=== PATIENT | female | born 1960 | race Caucasian/White ===

== ENCOUNTER 2024-07-26 15:10 | Emergency (ER) | payer OTHER, SELFPAY ==
--- NOTE | ~2024-07-26 | XR_ITS ---
EXAMINATION: XR hand LT min 3V DATE: 07/26/2024 16:35 INDICATION: Left hand injury. TECHNIQUE: 3 views of left hand were obtained. COMPARISON: None. FINDINGS: Alignment is normal. Trapezium is absent. There is mild osteoarthritis of triscaphe joint. There is mild osteoarthritis of some of the metacarpophalangeal joints and interphalangeal joints. Th ere is moderate osteoarthritis of first interphalangeal joint. IMPRESSION: 1. Polyarticular osteoarthritis. Reviewed, dictated and finalized at location [facility]. [facility]
--- OUTSIDE RECORDS SUMMARY | 2024-07-26 15:12 | XMS_ITS | Data Portability ---
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 Name Role Phone TOPHER THRASHER Primary Care Provider [phone] Assessment Encounter Date Assessment Date Assessment LastModified by Organization Details LastModified Time 11/15/2023 11/15/2023 add long-acting inhaler check blood work get old records try to get her on GLP 1 agent follow up 4 months [email or web address] Not available 12/10/2023 23:17:27 04/04/2024 04/04/2024 she has already received some shots flu COVID and I believe she needs a Prevnar 20 we will go ahead and get that going we will try to get her mammogram in Cologuard reports continue current therapy follow up in 4 months healthy lifestyle care instructions [email or web address] Not available 04/08/2024 14:58:13 07/11/2024 07/11/2024 we will continue current therapy healthy lifestyle care instructions blood work has been ordered diagnosis discussed all questions answered she will follow up in 4 months [email or web address] Not available 07/15/2024 17:34:05 Plan of Treatment Reminders Order Date Submit Date Provider Last Modified By Organization Details Last Modified Time Details Appointments ANY 15 2024 02:00P Rebecca Thrasher MD Not available Not available Not available Lab CBC w/ auto diff 2024 025 [facility], [address], [address], [place], [address], 07/12/2024 14:43:41 vitamin D, 25-hydrox y, total, serum 2024 025 [facility], [address], [address], [place], [address], 07/12/2024 14:43:42 lipid panel, serum 2024 025 [facility], [address], [address], [place], [address], 07/12/2024 14:43:39 CMP, serum or plasma 2024 025 [facility], [address], [address], [place], [address], 07/12/2024 14:43:40 noninvasi ve colorecta l cancer DNA + occult blood screening , QL, stool 2023 024 [facility]), [address], [address], [place], [address], 05/09/2024 06:35:15 CBC w/ auto diff 2023 024 [facility], [address], [address], [place], [address], 12/16/2023 08:27:56 CMP, serum or plasma 2023 024 LATANYA [facility], [address], [address], [place], [address], 12/16/2023 08:27:56 lipid panel, serum 2023 024 [facility], [address], [address], [place], [address], 12/16/2023 08:27:55 Referral None recorded. Procedures None recorded. Surgeries None recorded. Imaging None recorded. Medication Orders atorvasta tin 10 mg tablet 2023 024 [id number], [address], [place], [place], [id number], 04/04/2024 15:31:33 albuterol sulfate HFA 90 mcg/actua tion aerosol inhaler [address] [facility], [address], [place], [id number], 11/15/2023 17:30:02 Breztri Aerospher e 160 mcg-9mcg- 4.8mcg/ac tuation HFA aerosol inhaler [address] [facility]72680, [address], [place], [id number], 11/15/2023 17:30:02 Wegovy 0.25 mg/0.5 mL subcutane ous pen injector 2023 [facility] #51643, [address], [place], [id number], 04/04/2024 14:06:56 Wegovy 0.5 mg/0.5 mL subcutane ous pen injector 2023 [facility] #86383, [address], [place], [id number], 04/04/2024 14:07:06 Patient TargetsNo targets recorded. Patient Instructions Encounter Date Encounter Id Patient Instructions Last Modified By Organization Details Last Modified Time 04/04/2024 [id number] A healthy lifestyle: care instructions [email or web address] Not available 04/04/2024 15:31:33 07/11/2024 [id number] A healthy lifestyle: care instructions [email or web address] Not available 07/11/2024 18:02:36 Reason for Referral None Reported. Results Created Date Observation Date Name Description Value Unit Range Abnormal Flag Note LastModifiedBy Organization Detail LastModifiedTime 12/15/19 24 12/16/2023 LIPID PANEL cholesterol, total 146 mg/dL 100-19 9 Not Available [facility] ([facility]) [address] [place], [address], 12/16/2023 08:27:55 12/15/19 24 12/16/2023 LIPID PANEL triglyceride s 63 mg/dL 0-149 Not Available [facility] [address] [place], [address], 12/16/2023 08:27:55 12/15/19 24 12/16/2023 LIPID PANEL HDL cholesterol 62 mg/dL >39 Not Available [facility] [address] [place], [address], 12/16/2023 08:27:55 12/15/19 24 12/16/2023 LIPID PANEL VLDL cholesterol aneesh 13 mg/dL 5-40 Not Available [facility] [address] [place], [address], 12/16/2023 08:27:55 12/15/19 24 12/16/2023 LIPID PANEL LDL chol calc ([facility]) 71 mg/dL 0-99 Not Available [facility] [address] [place], [address], 12/16/2023 08:27:55 12/15/19 24 12/16/2023 COMP. METAB OLIC PANEL (14) glucose 93 mg/dL 70-99 Not Available [facility] ([facility]) [address] [place], [address], 12/16/2023 08:27:56 12/15/19 24 12/16/2023 COMP. METAB OLIC PANEL (14) BUN 14 mg/dL 8-27 Not Available [facility] ([facility]) [address] [place], [address], 12/16/2023 08:27:56 12/15/19 24 12/16/2023 COMP. METAB OLIC PANEL (14) creatinine 0.81 mg/dL 0.57-1 .00 Not Available [facility] ([facility]) [address] [place], [address], 12/16/2023 08:27:56 12/15/19 24 12/16/2023 COMP. METAB OLIC PANEL (14) eGFR 82 mL/mi n/1.7 3 >59 Not Available [facility] ([facility]) [address] [facility], [place], [address], 12/16/2023 08:27:56 12/15/19 24 12/16/2023 COMP. METAB OLIC PANEL (14) BUN/creatini ne ratio 17 12-28 Not Available [facility] ([facility]) [address] [facility], [place], [address], 12/16/2023 08:27:56 12/15/19 24 12/16/2023 COMP. METAB OLIC PANEL (14) sodium 139 mmol/ L 134-14 4 Not Available [facility] ([facility]) [address] [place], [address], 12/16/2023 08:27:56 12/15/19 24 12/16/2023 COMP. METAB OLIC PANEL (14) potassium 4.5 mmol/ L 3.5-5. 2 Not Available [facility] ([facility]) [address] [place], [address], 12/16/2023 08:27:56 12/15/19 24 12/16/2023 COMP. METAB OLIC PANEL (14) chloride 104 mmol/ L 96-106 Not Available [facility] ([facility]) [address] [place], [address], 12/16/2023 08:27:56 12/15/19 24 12/16/2023 COMP. METAB OLIC PANEL (14) carbon dioxide, total 24 mmol/ L 20-29 Not Available [facility] ([facility]) [address] [place], [address], 12/16/2023 08:27:56 12/15/19 24 12/16/2023 COMP. METAB OLIC PANEL (14) calcium 9.7 mg/dL 8.7-10 .3 Not Available [facility] ([facility]) [address] [place], [address], 12/16/2023 08:27:56 12/15/19 24 12/16/2023 COMP. METAB OLIC PANEL (14) protein, total 6.7 g/dL 6.0-8. 5 Not Available [facility] ([facility]) [address] [facility], [address], 12/16/2023 08:27:56 12/15/19 24 12/16/2023 COMP. METAB OLIC PANEL (14) albumin 4.1 g/dL 3.9-4. 9 Not Available [facility] ([facility]) [address] [place], [address], 12/16/2023 08:27:56 12/15/19 24 12/16/2023 COMP. METAB OLIC PANEL (14) globulin, total 2.6 g/dL 1.5-4. 5 Not Available [facility] ([facility]) [address] [facility], [address], 12/16/2023 08:27:56 12/15/19 24 12/16/2023 COMP. METAB OLIC PANEL (14) bilirubin, total 0.4 mg/dL 0.0-1. 2 Not Available [facility] ([facility]) [address] [place], [address], 12/16/2023 08:27:56 12/15/19 24 12/16/2023 COMP. METAB OLIC PANEL (14) alkaline phosphatase 152 IU/L 44-121 above high normal Not Available [facility] ([facility]) [address] [place], [address], 12/16/2023 08:27:56 12/15/19 24 12/16/2023 COMP. METAB OLIC PANEL (14) AST (SGOT) 45 IU/L 0-40 above high normal Not Available [facility] ([facility]) [address] [place], [id number], 12/16/2023 08:27:56 12/15/19 24 12/16/2023 COMP. METAB OLIC PANEL (14) ALT (SGPT) 66 IU/L 0-32 above high normal Not Available [facility] ([facility]) [address] [place], [address], 12/16/2023 08:27:56 12/15/19 24 12/16/2023 CBC WITH DIFFE RENTI AL/PL ATELE T WBC 5.0 x10e3 /uL 3.4-10 .8 Not Available [facility] ([facility]) [address] [facility], [address], 12/16/2023 08:27:56 12/15/19 24 12/16/2023 CBC WITH DIFFE RENTI AL/PL ATELE T RBC 4.04 x10e6 /uL 3.77-5 .28 Not Available [facility] ([facility]) [address] [facility], [address], 12/16/2023 08:27:56 12/15/19 24 12/16/2023 CBC WITH DIFFE RENTI AL/PL ATELE T hemoglobin 12.2 g/dL 11.1-1 5.9 Not Available [facility] ([facility]) [address] [facility], [address], 12/16/2023 08:27:56 12/15/19 24 12/16/2023 CBC WITH DIFFE RENTI AL/PL ATELE T hematocrit 36.8 % 34.0-4 6.6 Not Available [facility] ([facility]) [address] [facility], [place], [address], 12/16/2023 08:27:56 12/15/19 24 12/16/2023 CBC WITH DIFFE RENTI AL/PL ATELE T MCV 91 fL 79-97 Not Available [facility] ([facility]) [address] [facility], [place], [address], 12/16/2023 08:27:56 12/15/19 24 12/16/2023 CBC WITH DIFFE RENTI AL/PL ATELE T MCH 30.2 pg 26.6-3 3.0 Not Available [facility] ([facility]) [address] [facility], [place], [address], 12/16/2023 08:27:56 12/15/19 24 12/16/2023 CBC WITH DIFFE RENTI AL/PL ATELE T MCHC 33.2 g/dL 31.5-3 5.7 Not Available [facility] ([facility]) [address] [facility], [place], [address], 12/16/2023 08:27:56 12/15/19 24 12/16/2023 CBC WITH DIFFE RENTI AL/PL ATELE T RDW 12.8 % 11.7-1 5.4 Not Available [facility] ([facility]) [address] [facility], [place], [address], 12/16/2023 08:27:56 12/15/19 24 12/16/2023 CBC WITH DIFFE RENTI AL/PL ATELE T platelets 233 x10e3 /uL 150-45 0 Not Available [facility] ([facility] [address] [place], [address], 12/16/2023 08:27:56 12/15/19 24 12/16/2023 CBC WITH DIFFE RENTI AL/PL ATELE T neutrophils 46 % notest ab. Not Available [facility] ([facility]) [address] [facility], [place], [address], 12/16/2023 08:27:56 12/15/19 24 12/16/2023 CBC WITH DIFFE RENTI AL/PL ATELE T lymphs 42 % notest ab. Not Available [facility] ([facility]) [address] [facility], [place], [address], 12/16/2023 08:27:56 12/15/19 24 12/16/2023 CBC WITH DIFFE RENTI AL/PL ATELE T monocytes 9 % notest ab. Not Available [facility] ([facility]) [address] [facility], [place], [address], 12/16/2023 08:27:56 12/15/19 24 12/16/2023 CBC WITH DIFFE RENTI AL/PL ATELE T eos 2 % notest ab. Not Available [facility] ([facility]) [address] [facility], [place], [address], 12/16/2023 08:27:56 12/15/19 24 12/16/2023 CBC WITH DIFFE RENTI AL/PL ATELE T basos 1 % notest ab. Not Available [facility] ([facility]) [address] [facility], [place], [address], 12/16/2023 08:27:56 12/15/19 24 12/16/2023 CBC WITH DIFFE RENTI AL/PL ATELE T neutrophils (absolute) 2.3 x10e3 /uL 1.4-7. 0 Not Available [facility] ([facility]) [address] [facility], [place], [address], 12/16/2023 08:27:56 12/15/19 24 12/16/2023 CBC WITH DIFFE RENTI AL/PL ATELE T lymphs (absolute) 2.1 x10e3 /uL 0.7-3. 1 Not Available [facility] ([facility] [address] [place], [address], 12/16/2023 08:27:56 12/15/19 24 12/16/2023 CBC WITH DIFFE RENTI AL/PL ATELE T monocytes(ab solute) 0.5 x10e3 /uL 0.1-0. 9 Not Available [facility] ([facility]) [address] [facility], [place], [address], 12/16/2023 08:27:56 12/15/19 24 12/16/2023 CBC WITH DIFFE RENTI AL/PL ATELE T eos (absolute) 0.1 x10e3 /uL 0.0-0. 4 Not Available [facility] ([facility]) [address] [facility], [place], [address], 12/16/2023 08:27:56 12/15/19 24 12/16/2023 CBC WITH DIFFE RENTI AL/PL ATELE T baso (absolute) 0.0 x10e3 /uL 0.0-0. 2 Not Available [facility] ([facility]) [address] [facility], [place], [address], 12/16/2023 08:27:56 12/15/19 24 12/16/2023 CBC WITH DIFFE RENTI AL/PL ATELE T immature granulocytes 0 % notest ab. Not Available [facility] ([facility]) [address] [facility], [place], [address], 12/16/2023 08:27:56 12/15/19 24 12/16/2023 CBC WITH DIFFE RENTI AL/PL ATELE T immature grans (abs) 0.0 x10e3 /uL 0.0-0. 1 Not Available [facility] ([facility] [address] [place], [address], 12/16/2023 08:27:56 04/27/20 24 04/27/2024 COLOG UARD cologuard result reportable NEGATI VE negati ve normal NEGAT MARISELA TEST RESUL T. A negat marisela Colog uard resul t indic ates a low likel ihood that a color ectal cance r (CRC) or advan betzaida adeno ma (joesph omato us polyp s with more advan betzaida pre-m align ant featu res) is prese nt. The [facility] emergency department e that a perso n with a negat marisela Colog uard test has a color ectal cance r is less than 1 in 1500 (nega tive predi ctive value >99.9 %) or has an advan betzaida adeno ma is less than 5.3% (nega tive predi ctive value 94.7% ). These data are based on a prosp ectiv e cross -sect ional study of 10,00 0 indiv idual s at [place] risk for color ectal cance r who were scree edwar with both Colog uard and colon oscop y. (El Da Silva et al, N Engl J Med 2014; 370(1 4):12 86-12 97) The tori l value (refe rence range ) for this assay is negat marisela. COLOG UARD RE-SC REELUZ NG RECOM MENDA TION: Perio dic color ectal cance r scree elma is an impor tant part of preve ntive healt hcare for asymp tomat ic indiv idual s at [place] risk for color ectal cance r. Follo wing a negat marisela Colog uard resul t, the Ameri can Cance r Socie ty and U.S. Multi -Soci ety Task Force scree elma guide lines recom mend a Colog uard re-sc reeni ng inter amos of 3 years . Refer ences : Ameri can Cance r Socie ty Guide line for Color ectal Cance r Scree elma: https ://gina w.can cer.o rg/ca ncer/ colon -rect al-ca ncer/ detec tion- diagn osis- stagi ng/ac s-rec ommen datio ns.ht ml.; Jim DEL VALLE, Josephine mullins CR, Jeremiah MolinaK, Color ectal Cance r Scree elma: Recom menda tions for Physi cians and Patie nts from the U.S. Multi -Soci ety Task Force on Color ectal Cance r Screilana wills , Am Tracy courtney y 2017; 112:1 016-1 030. TEST DESCR IPTIO N: [place] site algor ithmi c rose mary sis of stool DNA-b luke rodriguez with hemog lobin immun oassa y. Quant itati ve value s of indiv idual bioma rkers are not repor table and are not assoc iated with indiv idual bioma rker resul t refer ence range s. Colog uard is inten ded for color ectal cance r scree elma of adult s of eithe r sex, 45 years or older , who are at [facility] for color ectal cance r (CRC) . Colog uard has been appro hong for use by the U.S. FDA. The perfo rmanc e of Colog uard was estab lishe d in a cross secti onal study of [facility] adult s aged 50-84 . Colog uard perfo rmanc e in patie nts ages 45 to 49 years was estim ated by sub-g roup rose mary sis of near- age group s. Colon oscop ies perfo rmed for a posit marisela resul t may find as the most clini neris signi festus hardy n: color ectal cance r [4.0% ], advan betzaida adeno ma (incl uding sessi le katharine greg polyp s great er than or equal to 1cm diame ter) [20%] or non- advan betzaida adeno ma [31%] ; or no color ectal neopl mik [45%] . These estim ates are deriv ed from a prosp ectiv e cross -sect ional scree elma study of 10,00 0 indiv idual s at [facility] risk for color ectal cance r who were scree edwar with both Colog uard and colon oscop y. (El Olivia al, N Engl J Med 2014; 370(1 4):12 86-12 97.) Colog uard may produ ce a false negat marisela or false posit marisela resul t (no color ectal cance r or preca ncero us polyp prese nt at colon oscop y follo w up). A negat marisela Colog uard test resul t does not guara ntee the absen ce of CRC or advan betzaida aries ma (pre- cance r). The curre nt Colog uard screilana wills inter amos is every 3 years . (Amer ican Cance r Socie ty and U.S. Multi -Soci ety Task Force ). Colog uard perfo rmanc e data in a 10,00 0 patie nt pivot al study using colon oscop y as the refer ence metho d can be acces sed at the follo wing locat ion: www.e xactl abs.c om/re sults . Addit ional descr iptio n of the Colog uard test proce ss, warni ngs and preca ution s can be found at www.c ologu komal.c om. Not Available [facility] ([facility] Only) [address], [place], [address], 05/09/2024 06:35:15 05/09/20 24 08/25/2022 MAMMO , zack gonzálesg, digit al, bilat eral No observ ation record ed. [facility] [address] [place], [address], 05/10/2024 10:33:49 Result Notes None recorded. Problems Name Problem SNOMED Code Status Onset Date Resolution Date Notes Provider Name and Address Organization Details Recorded Time Asthma 557391347 Active 2023 Miguel Saba MA null, [place] - [facility] 4 16:45:14 Essential hypertension 24928905 Active 2023 Miguel Saba [place], [place] [facility] 16:45:14 Hyperlipidemia 36174088 Active 2023 Miguel Saba [place], [place] [facility] 16:45:15 Anxiety 31515938 Active 2023 Topher Thrasher MD Attn: Samantha sen,[address] [facility], [place], [address], [facility] 4 23:16:10 Vitamin D below reference range 772389588 Active 2023 Topher Thrasher MD Attn: Samantha sen,[address], [place], [address], [place] [facility] 4 23:16:11 Paroxysmal dystonia 670898102 Active 2023 Topher Thrasher MD Attn: Samantha sen,[address], [place], [address], [facility] 4 23:16:12 Overweight 313270656 Active 2023 Topher Thrasher MD Attn: Samantha sen,[address] [facility], [place], [address], [facility] 4 23:16:16 Problem Notes None recorded. Procedures Surgical History Date Name Laterality Status Provider Name and Address Organization Details Recorded Time 06/06/19 15 hysterectomy completed Rachel Castanon MA [facility] 04/04/2024 14:19:58 Arthroscopic Surgery completed Aracely Fisher MA [facility] 11/15/2023 15:56:18 Cholecystectomy completed Aracely Fisher MA [facility] 11/15/2023 15:56:24 Eye Surgery completed Aracely Fisher MA [facility] 11/15/2023 15:56:28 Knee Surgery completed Aracely Fisher MA [facility] 11/15/2023 15:56:35 Imaging Results Imaging Date Name Status LastModified by Organiz ation Details LastModified Time 08/25/2022 MAMMO, screening, digital, bilateral completed [facility] [address] [place], [address], 05/10/2024 10:33:49 Procedure Notes None recorded. Medical Equipment None Reported. Allergies No known drug allergies Medications Name Sig Start Date Stop Date Status Note LastModified by Organization Details LastModified Time Prescriptio n - Prior Authorizati on Request active Not Available Not Available N ot Available atorvastati n 10 mg tablet Take 1 tablet every day by oral route. active Not Available Not Available No t Available levetiracet am 750 mg tablet active Not Available Not Available Not Available ergocalcife rol (vitamin D2) 1,250 mcg (50,000 unit) capsule TAKE 1 CAPSULE BY MOUTH EVERY WEEK 07/11 completed Not Available Not Available Not Available albuterol sulfate HFA 90 mcg/actuati on aerosol inhaler INHALE 2 PUFFS BY MOUTH EVERY 4 HOURS active Not Available Not Available No t Available fluoxetine 20 mg capsule active Not Available Not Available Not Available Breztri Aerosphere 160 mcg-9mcg-4. 8mcg/actuat ion HFA aerosol inhaler INHALE 2 PUFFS BY MOUTH TWICE DAILY active Not Available Not Available No t Available Wegovy 0.25 mg/0.5 mL subcutaneou s pen injector inject 0.25mg weekly for 4wks then go to 0.5mg weekly for 4wks. 04/04 completed Not Available Not Available Not Available Wegovy 0.5 mg/0.5 mL subcutaneou s pen injector Inject by subcutane ous route for 28 days. active Not Available Not Available No t Available Vitals Date Recorded Body height Body mass index (BMI) Body weight Heart rate Oxygen saturation Oxygen saturation in Arterial blood by Pulse oximetry Systolic blood pressure Diastolic blood pressure Provider Name and Address Organization Details Last Updated DateTime 4 167.64 cm 35.5 kg/m2 72451.6 g 67 /min 97 % 97 % 130 mm[Hg] 82 mm[Hg] Aracely Fisher MA [place] - [facility] 4 15:41:39 Date Recorded Body height Body mass index (BMI) Body weight Heart rate Oxygen saturation Oxygen saturation in Arterial blood by Pulse oximetry Systolic blood pressure Diastolic blood pressure Provider Name and Address Organization Details Last Updated DateTime 4 167.64 cm 36.2 kg/m2 322732. 13 g 70 /min 97 % 97 % 110 mm[Hg] 70 mm[Hg] Rachel Castanon MA [place] - [facility] 4 14:05:27 Date Recorded Body height Body mass index (BMI) Body weight Heart rate Oxygen saturation Oxygen saturation in Arterial blood by Pulse oximetry Systolic blood pressure Diastolic blood pressure Provider Name and Address Organization Details Last Updated DateTime 02/05/202 5 167.64 cm 35.8 kg/m2 383770. 51 g 72 /min 95 % 95 % 128 mm[Hg] 82 mm[Hg] Rachel Castanon MA [place] - [facility] 15:13:39 Social History Question Answer Notes LastModified by Organizat ion Details LastModified Time Tobacco Smoking Status Never Smoker Aracely PachecoBLAKE bell null, [place] - [facility] 11/15/2023 15:38:54 Do You Have An Advance Directive? No Information n ot available 04/04/2024 What Is Your Level Of Alcohol Consumption? Occasional Information not available 11/15/2023 Are You Blind Or Do You Have Difficulty Seeing? No Information n ot available 11/15/2023 What Is Your Level Of Caffeine Consumption? Occasional Information not available 04/04/2024 In The 14 Days Before Symptom Onset, Have You Had Close Contact With A Laboratory-confirm ed COVID-19 While That Case Was Ill? No Information n ot available 04/04/2024 In The 14 Days Before Symptom Onset, Have You Had Close Contact With A Person Who Is Under Investigation For COVID-19 While That Person Was Ill? No Information not available 04/04/2024 Have You Been To An Area Known To Be High Risk For COVID-19? No Information not available 04/04/2024 Are You Currently Employed? No Information not available 04/04/2024 Are You Deaf Or Do You Have Serious Difficulty Hearing? No Information not available 11/15/2023 What Type Of Diet Are You Following? REGULAR Information n ot available 04/04/2024 Are There Any Guns Present In Your Home? No Information not available 04/04/2024 What Was The Date Of Your Most Recent Tobacco Screening? 07/11/2024 Information not available 07/11/2024 What Is Your Relationship Status? Information not available 11/15/2023 Do You Use Your Seat Belt Or Car Seat Routinely? Yes Information not available 04/04/2024 Do You Have Smoke And Carbon Monoxide Detectors In Your Home? Yes Information not available 04/04/2024 Do You Use Any Illicit Or Recreational Drugs? No Information not available 04/04/2024 Do You Use Sunscreen Routinely? Yes Information not available 04/04/2024 Sex: Female Functional Status Question Answer Note LastModified by Organization D etails LastModified Time Are you able to care for yourself? Yes Information n ot available 11/15/2023 Mental Status None recorded. Family History Relationship Description Onset Age of this Age Resolved Age Notes LastModified by Organization Details LastModified Time Mother Malignant tumor of lung [email or web address] Not available 2023 15:56:57 Father Parkinson's disease [email or web address] Not available 2023 15:57:06 Medical History Condition Response Anxiety Disorder Y Muscle, Joint, or Bone Problems Y Other Y High Blood Pressure Y High Cholesterol Y Asthma Y Allergies Y Gynecological HistoryNo gynecological history recorded. Obstetrics History GPAL:G 0 P 0 0 0 0 Immunizations Vaccine Type Date Status Note Provider Nam e and Address Organization Details Recorded Time Influenza, split virus, quadrivalent, preservative 9 completed BLAKE [place], [place] [facility] 07/11/2024 14:52:09 Influenza, split virus, quadrivalent, preservative 8 completed B[place] [facility] 07/11/2024 14:52:09 Influenza, split virus, quadrivalent, preservative 1 completed [place] [facility] 07/11/2024 14:52:09 Influenza, MDCK, quadrivalent, PF 7 completed [place] [facility] 07/11/2024 14:52:09 Influenza, MDCK, quadrivalent, PF 2 [place] [facility] 07/11/2024 14:52:09 zoster, unspecified formulation 0 BLAKE [place] [facility] 07/11/2024 14:52:09 COVID-19, mRNA, LNP-S, PF, 100 mcg/0.5mL dose or 50 mcg/0.25mL dose 1 [place] [facility] 07/11/2024 14:52:09 COVID-19, mRNA, LNP-S, PF, 100 mcg/0.5mL dose or 50 mcg/0.25mL dose 1 [place] [facility] 07/11/2024 14:52:09 COVID-19, mRNA, LNP-S, PF, 30 mcg/0.3 mL dose 1 [place] [facility] 07/11/2024 14:52:09 COVID-19, mRNA, LNP-S, PF, 30 mcg/0.3 mL dose, kevyn-sucrose 2 [place] [facility] 07/11/2024 14:52:09 COVID-19, mRNA, LNP-S, bivalent, PF, 30 mcg/0.3 mL dose 2 [place] [facility] 07/11/2024 14:52:09 RSV, recombinant, protein subunit RSVpreF, adjuvant reconstituted, 0.5 mL, PF 3 [place] [facility] 07/11/2024 14:52:09 COVID-19, mRNA, LNP-S, PF, kevyn-sucrose, 30 mcg/0.3 mL 3 [place] [facility] 07/11/2024 14:52:09 Pneumococcal conjugate PCV 13 6 [place] [facility] 07/11/2024 14:52:09 Influenza, split virus, trivalent, preservative 0 [place] [facility] 07/11/2024 14:52:09 Influenza, split virus, trivalent, preservative 4 [place] [facility] 07/11/2024 14:52:09 Influenza, split virus, trivalent, preservative 3 [place] [facility] 07/11/2024 14:52:09 Influenza, split virus, trivalent, preservative 3 completed Rachel Castanon, [place] [facility] 07/11/2024 14:52:09 Influenza, split virus, trivalent, PF 6 completed Rachel [place] [facility] 07/11/2024 14:52:09 Influenza, split virus, trivalent, PF 5 completed Rachel Cast[place] [facility] 07/11/2024 14:52:09 Influenza, split virus, quadrivalent, PF 3 completed Rachel [place] [facility] 07/11/2024 14:52:09 Influenza, split virus, quadrivalent, PF 1 completed Rachel [place] [facility] 07/11/2024 14:52:09 Pneumococcal conjugate PCV20, polysaccharide [id number] conjugate, adjuvant, PF 4 completed Rachel [place] [facility] 07/11/2024 15:15:18 COVID-19, mRNA, LNP-S, PF, kevyn-sucrose, 30 mcg/0.3 mL 4 completed Rachel Cast[place] [facility] 07/11/2024 15:15:18 Influenza, MDCK, trivalent, PF 4 completed Rachel Cast[place] [facility] 07/11/2024 15:15:18 Pneumococcal conjugate PCV20, polysaccharide [id number] conjugate, adjuvant, PF 4 completed Topher Thrasher MD Attn: [employer] [place], [address], [place] [facility] 04/08/2024 14:55:06 Past Encounters Encounter ID Performer Location Encounter Start Date Encounter Closed Date Diagnosis/Indication Diagnosis SNOMED-CT Code Diagnosis ICD10 Code Diagnosis Note [id number] Topher Thrasher MD [facility] (Adult Med) [address] [place] [address] 11/15/2023 15:02:15 11/15/2023 16:45:53 Essential hypertension 98771342 I10 Asthma 003115696 J45.90 9 Hyperlipidemia 48600828 E78.5 Overweight 575137615 E66 .3 Anxiety 50007816 F41.9 Vitamin D below reference range 464090632 E55.9 Paroxysmal dystonia 2303 37151 G24.8 [id number] MD [facility] (Adult Med) [address] [place] [phone] 04/04/2024 13:52:40 04/04/2024 14:53:51 Body mass index 30+ - obesity 394863804 Z68.36 Obesity 483140160 E66.9 Hyperlipidemia 56728871 E78.5 Screening for malignant neoplasm of colon 888342092 Z12.11 Administra tion of pneumococcal vaccine 93024786 Z23 Asthma 544872377 J45.90 9 Essential hypertension 82012000 I10 Anxiety 24607135 F41.9 Paroxysmal dystonia 2303 82320 G24.8 [id number] Topher Thrasher MD [facility] (Adult Med) [address] [place] [phone] 07/11/2024 14:48:33 07/11/2024 15:53:10 Body mass index 30+ - obesity 510651860 Z68.36 Obesity 831785452 E66.9 Essential hypertension 01202106 I10 Hyperlipidemia 95032059 E78.5 Paroxysmal dystonia 2303 29449 G24.8 Asthma 755445058 J45.90 9 Anxiety 04515207 F41.9 Vitamin D below reference range 494002850 E55.9 Health Concerns Section Related Observation LastModified by Organization Detai ls LastModified Time None Recorded Concern Status LastModified by Organization Details LastModified Time None Recorded Advance Directives Directive N: Payers Encounter Date Sequence Insurance Name Policy Number Policy Dumont Covered Member ID Dumont Member ID Guarantor Name 11/15/2023 1 [employer] [id number] Aure Mtz [id number] Aure Mtz 04/04/2024 1 [employer] [id number] Aure Mtz [id number] Aure Mtz 07/11/2024 1 [employer] [id number] Aure Mtz [id number] [employer]ure M[employer] Notes Date Note Type Note Provider Name and Address Organization Details Recorded Time 11/15/2023 text/html asthma fatigue l ow vitamin-D level anxiety paroxysmal dystonia has had some awaking it at night needing to use her inhaler Topher Thrasher MD Attn: [employer] , [place], [address], [facility] 12/10/2023 23:18:02 04/04/2024 text/html asthma rescue inhaler has been used sparingly anxiety fluoxetine doing fine dyslipidemia taking atorvastatin trying to follow a low-fat diet low vitamin-D level needs to be refilled with regards to her vitamin-D Topher Thrasher MD Attn: Accounting[address] , [place], [address], [facility] 04/08/2024 14:58:30 07/11/2024 text/html follow up on medical problems asthma has been doing fine paroxysmal dystonia no new complaints there anxiety has been stable needs a vitamin-D level checked she has had a low level in the past hypertension blood pressure looks good obesity she needs a little bit of help losing weight Topher Thrasher MD Attn: Accounting[address] , [place], [address], [facility] 07/15/2024 17:34:36 OBGyn Episode No OBEpisode recorded.
--- OUTSIDE RECORDS SUMMARY | 2024-07-26 15:12 | XMS_ITS | Data Portability ---
Author Organization [place] - [facility] [employer], Main Office Address [address] [place] [address] Assessment Encounter Date Assessment Date Assessment LastModified by Organization Details LastModified Time 10/26/2022 10/26/2022 Asthma she has had a little bit uptake in her it rescue inhaler loose over the last week we have at high pollen counts over that of settle down she is fine today other diagnosis have been discussed blood work been ordered continue current therapy to also include action plan for asthma discussed follow-up 4 [email or web address] Not available 10/26/2022 13:54:56 04/19/2023 04/19/2023 Blood work continue current therapy bone density follow-up 6 months Not available 04/26/2023 21:01:43 Plan of Treatment Reminders Order Date Submit Date Provider Last Modified By Organization Details Last Modified Time Details Appointments None recorded. Lab CMP, serum or plasma 2022 023 Not available 3 21:25:42 lipid panel, serum 2022 023 [email or web address] Not available 21:25:42 CBC w/ auto diff 2022 023 [email or web address] Not available 21:25:42 vitamin D, 25-hydroxy , total, serum 2022 023 [email or web address] Not available 3 09:44:10 CMP, serum or plasma 2022 023 [email or web address] Not available 3 20:12:37 lipid panel, serum 2022 023 LATANYA Not available 3 20:12:46 CBC w/ auto diff 2022 023 LATANYA Not available 3 19:45:43 Referral None recorded. Procedures None recorded. Surgeries None recorded. Imaging MAMMO, screening, digital, bilateral 2022 023 [email or web address] Not available 4 08:30:23 bone density 2022 023 Not available 4 18:50:30 Medication Orders None recorded. Patient TargetsNo targets recorded. Patient InstructionsNo instructions recorded. Reason for Referral None Reported. Results Created Date Observation Date Name Description Value Unit Range Abnormal Flag Note LastModifiedBy Organization Detail LastModifiedTime 05/04/2005/04/2022 LIPID PANEL cholesterol 186 mg/dL 140-19 9 [facility] NSUS RECOM MENDA TION FOR SPARKLE STERO L: ADULT CHILD LOW RISK: <200 <170 BORDE RLINE : <200- 239 ----- HIGH RISK: >240 >200 Not Available [facility] (Lab) [address] [place], [address], 05/04/2022 20:53:30 05/04/20 22 05/04/2022 LIPID PANEL triglyceride s 83 mg/dL 0-150 [facility] ELSA NSUS REPOR T RECOM MENDA TION FOR TRIGL YCERI ANM: ADULT CHILD LOW RISK: <150 ----- BODER LINE: 150-1 99 ----- HIGH RISK: >200 ----- Not Available [facility] (Lab) [address] [place], [address], 05/04/2022 20:53:30 05/04/20 22 05/04/2022 LIPID PANEL HDL cholesterol 70 mg/dL 40- Not Available [facility] (Lab) [address] [place], [address], 05/04/2022 20:53:30 05/04/20 22 05/04/2022 LIPID PANEL LDL cholesterol, calculated 99 mg/dL 0-130 [facility] EL[facility] NSUS REPOR T RECOM MENDA TIONS FOR LDL: ADULT CHILD LOW RISK <130 <110 (OPTI MAL LDL) <100 ----- BORDE RLINE : 130-1 59 ----- HIGH RISK: >160 >130 A TRIGL YCERI DE RESUL T >400 INVAL IDATE S THE CALCU LATIO N FOR LDL FRACT IONAT ION - THE LDL RESUL T WILL NOT BE REPOR SUZIE. Not Available [facility] (Lab) [address] [place], [address], 05/04/2022 20:53:30 05/04/20 22 05/04/2022 COMPR EHENS MARISELA METAB OLIC PANEL sodium 141 mmol/ L 137-14 5 Not Available [facility] (Lab) [address] [place], [address], 05/04/2022 20:53:26 05/04/20 22 05/04/2022 COMPR EHENS MARISELA METAB OLIC PANEL potassium 4.3 mmol/ L 3.5-5. 1 Not Available [facility] (Lab) [address] [place], [address], 05/04/2022 20:53:26 05/04/20 22 05/04/2022 COMPR EHENS MARISELA METAB OLIC PANEL chloride 106 mmol/ L 98-107 Not Available [facility] (Lab) [address] [place], [address], 05/04/2022 20:53:26 05/04/20 22 05/04/2022 COMPR EHENS MARISELA METAB OLIC PANEL carbon dioxide 25 mmol/ L 22-30 Not Available [facility] (Lab) [address] [place], [address], 05/04/2022 20:53:26 05/04/20 22 05/04/2022 COMPR EHENS MARISELA METAB OLIC PANEL anion gap 14.3 mmol/ L 14-22 Not Available [facility] (Lab) [address] [place], [address], 05/04/2022 20:53:26 05/04/20 22 05/04/2022 COMPR EHENS MARISELA METAB OLIC PANEL glucose 106 mg/dL 70-99 high Not Available [facility] (Lab) [address] [place], [address], 05/04/2022 20:53:26 05/04/20 22 05/04/2022 COMPR EHENS MARISELA METAB OLIC PANEL BUN 23 mg/dL 8-19 high Not Available [facility] (Lab) [address] [place], [address], 05/04/2022 20:53:26 05/04/20 22 05/04/2022 COMPR EHENS MARISELA METAB OLIC PANEL creatinine 0.87 mg/dL 0.66-1 .25 Not Available [facility] (Lab) [address] [place], [address], 05/04/2022 20:53:26 05/04/20 22 05/04/2022 COMPR EHENS MARISELA METAB OLIC PANEL GFR >60 Refer ence Range : Meno ge GFR Healt hy Adult : >60 mL/mi n/1.7 3 m2 Chron ic Kidne y Disea se: 15-60 mL/mi n/1.7 3 m2 Kidne y Failu re: <15/m L/min /1.73 m2 www.n iddk. nih.g ov The MDRD study equat ion has not been valid ated in child benita <18 years of age; pregn ant women ; the elder ly >85 years of age; or in some racia l or ethni c subgr oups, such as Hispa nics. Outsi de the valid ated xena eters , estim ated GFR is less accur ate, requi ring clini aneesh judgm ent on a case- by-ca se basis . Clini aneesh inter preta tion for other races and ages must be made by the clini tai. The MDRD study equat ion has not been valid ated for the evalu ation of serum creat inine relat ed to nutri paolo l statu s or medic ation usage . For perso ns <18 years of age, a pedia tric GFR calcu lator is avail able on the [facility] websi te: https ://gina leigh.cory escobedo/renetta maral s/kdo qi/gf r_cal culat or Not Available [facility] (Lab) [address] [place], [address], 05/04/2022 20:53:26 05/04/20 22 05/04/2022 COMPR EHENS MARISELA METAB OLIC PANEL alkaline phosphatase 111 U/L 38-126 Not Available [facility] (Lab) [address] [place], [address], 05/04/2022 20:53:26 05/04/20 22 05/04/2022 COMPR EHENS MARISELA METAB OLIC PANEL alanine aminotransfe rase 36 U/L 0-35 high Not Available [facility] (Lab) [address] [place], [address], 05/04/2022 20:53:26 05/04/20 22 05/04/2022 COMPR EHENS MARISELA METAB OLIC PANEL aspartate aminotransfe rase 38 U/L 15-37 high Not Available [facility] (Lab) [address] [place], [address], 05/04/2022 20:53:26 05/04/20 22 05/04/2022 COMPR EHENS MARISELA METAB OLIC PANEL bilirubin, total 0.60 mg/dL 0.20-1 .30 Not Available [facility] (Lab) [address] [place], [address], 05/04/2022 20:53:26 05/04/20 22 05/04/2022 COMPR EHENS MARISELA METAB OLIC PANEL calcium 9.5 mg/dL 8.4-10 .2 Not Available [facility] (Lab) [address] [place], [address], 05/04/2022 20:53:26 05/04/20 22 05/04/2022 COMPR EHENS MARISELA METAB OLIC PANEL total protein 7.0 g/dL 6.3-8. 2 Not Available [facility] (Lab) [address] [place], [address], 05/04/2022 20:53:26 05/04/20 22 05/04/2022 COMPR EHENS MARISELA METAB OLIC PANEL albumin 4.3 g/dL 3.4-5. 0 Not Available [facility] (Lab) [address] [place], [address], 05/04/2022 20:53:26 05/04/20 22 05/04/2022 COMPR EHENS MARISELA METAB OLIC PANEL globulin 2.7 g/dL 2.6-4. 2 Not Available [facility] (Lab) [address] [place], [address], 05/04/2022 20:53:26 05/04/20 22 05/04/2022 COMPR EHENS MARISELA METAB OLIC PANEL A/G ratio 1.6 ratio 1.0-2. 0 Not Available [facility] (Lab) [address] [place], [address], 05/04/2022 20:53:26 05/04/20 22 05/04/2022 CBC/C OMPLE TE BLD COUNT W/DIF F white blood cells 5.8 x10'3 /uL 4.2-10 .8 Not Available [facility] (Lab) [address] [place], [address], 05/04/2022 19:50:32 05/04/20 22 05/04/2022 CBC/C OMPLE TE BLD COUNT W/DIF F red blood cells 4.18 x10'6 /uL 3.80-5 .20 Not Available [facility] (Lab) [address] [place], [address], 05/04/2022 19:50:32 05/04/20 22 05/04/2022 CBC/C OMPLE TE BLD COUNT W/DIF F hemoglobin 12.3 g/dL 12.0-1 5.6 Not Available [facility] (Lab) [address] [place], [address], 05/04/2022 19:50:32 05/04/20 22 05/04/2022 CBC/C OMPLE TE BLD COUNT W/DIF F hematocrit 38.5 % 35.7-4 5.7 Not Available [facility] (Lab) [address] [place], [address], 05/04/2022 19:50:32 05/04/20 22 05/04/2022 CBC/C OMPLE TE BLD COUNT W/DIF F mean red cell volume 92.1 fL 82.0-9 9.0 Not Available [facility] (Lab) [address] [place], [address], 05/04/2022 19:50:32 05/04/20 22 05/04/2022 CBC/C OMPLE TE BLD COUNT W/DIF F mean red cell hemoglobin 29.4 pg 27.0-3 3.0 Not Available [facility] (Lab) [address] [place], [address], 05/04/2022 19:50:32 05/04/20 22 05/04/2022 CBC/C OMPLE TE BLD COUNT W/DIF F mean RBC HGB concentratio n 31.9 g/dL 31.0-3 6.0 Not Available [facility] (Lab) [address] [place], [address], 05/04/2022 19:50:32 05/04/20 22 05/04/2022 CBC/C OMPLE TE BLD COUNT W/DIF F red cell distribution width 13.7 % 11.8-1 5.5 Not Available [facility] (Lab) [address] [place], [address], 05/04/2022 19:50:32 05/04/20 22 05/04/2022 CBC/C OMPLE TE BLD COUNT W/DIF F platelets 258 x10'3 /uL 150-40 0 Not Available [facility] (Lab) [address] [place], [address], 05/04/2022 19:50:32 05/04/20 22 05/04/2022 CBC/C OMPLE TE BLD COUNT W/DIF F mean platelet volume 10.1 fL 9.0-12 .4 Not Available [facility] (Lab) [address] [place], [address], 05/04/2022 19:50:32 05/04/20 22 05/04/2022 CBC/C OMPLE TE BLD COUNT W/DIF F neutrophils 48.8 % 39.0-7 2.0 Not Available [facility] (Lab) [address] [place], [address], 05/04/2022 19:50:32 05/04/20 22 05/04/2022 CBC/C OMPLE TE BLD COUNT W/DIF F lymphocytes 40.6 % 16.0-4 7.0 Not Available [facility] (Lab) [address] [place], [address], 05/04/2022 19:50:32 05/04/20 22 05/04/2022 CBC/C OMPLE TE BLD COUNT W/DIF F monocytes 8.7 % 5.0-12 .0 Not Available [facility] (Lab) [address] [place], [address], 05/04/2022 19:50:32 05/04/20 22 05/04/2022 CBC/C OMPLE TE BLD COUNT W/DIF F eosinophils 1.4 % 1.0-7. 0 Not Available [facility] (Lab) [address] [place], [address], 05/04/2022 19:50:32 05/04/20 22 05/04/2022 CBC/C OMPLE TE BLD COUNT W/DIF F basophils 0.3 % 0.0-2. 0 Not Available [facility] (Lab) [address] [place], [address], 05/04/2022 19:50:32 05/04/20 22 05/04/2022 CBC/C OMPLE TE BLD COUNT W/DIF F immature granulocytes 0.2 % 0.00-0 .50 Not Available [facility] (Lab) [address] [place], [address], 05/04/2022 19:50:32 05/04/20 22 05/04/2022 CBC/C OMPLE TE BLD COUNT W/DIF F neutrophils, absolute count 2.81 x10'3 /uL 1.5-8. 0 Not Available [facility] (Lab) [address] [place], [address], 05/04/2022 19:50:32 05/04/20 22 05/04/2022 CBC/C OMPLE TE BLD COUNT W/DIF F lymphocytes, absolute count 2.34 x10'3 /uL 1.07-3 .43 Not Available [facility] (Lab) [address] [place], [address], 05/04/2022 19:50:32 05/04/20 22 05/04/2022 CBC/C OMPLE TE BLD COUNT W/DIF F monocytes, absolute count 0.50 x10'3 /uL 0.29-0 .99 Not Available [facility] (Lab) [address] [place], [address], 05/04/2022 19:50:32 05/04/20 22 05/04/2022 CBC/C OMPLE TE BLD COUNT W/DIF F eosinophils, absolute count 0.08 x10'3 /uL 0.02-0 .53 Not Available [facility] (Lab) [address] [place], [address], 05/04/2022 19:50:32 05/04/20 22 05/04/2022 CBC/C OMPLE TE BLD COUNT W/DIF F basophils, absolute count 0.02 x10'3 /uL 0.01-0 .08 Not Available [facility] (Lab) [address] [place], [address], 05/04/2022 19:50:32 05/04/20 22 05/04/2022 CBC/C OMPLE TE BLD COUNT W/DIF F immature granulocytes ,absolute 0.01 x10'3 /uL 0.00-0 .05 Not Available [facility] (Lab) [address] [place], [address], 05/04/2022 19:50:32 05/04/20 22 05/04/2022 CBC/C OMPLE TE BLD COUNT W/DIF F nucleated red blood cells 0.0 % -0 Not Available [facility] (Lab) [address] [place], [address], 05/04/2022 19:50:32 05/04/20 22 05/04/2022 CBC/C OMPLE TE BLD COUNT W/DIF F NRBC# 0.00 x10'3 /uL Not Available [facility] (Lab) [address] [place], [address], 05/04/2022 19:50:32 10/27/19 23 10/26/2022 CBC/C OMPLE TE BLD COUNT W/DIF F white blood cells 5.3 x10'3 /uL 4.2-10 .8 Not Available [facility] (Lab) [address] [place], [address], 10/26/2022 19:45:43 10/27/19 23 10/26/2022 CBC/C OMPLE TE BLD COUNT W/DIF F red blood cells 3.83 x10'6 /uL 3.80-5 .20 Not Available [facility] (Lab) [address] [place], [address], 10/26/2022 19:45:43 10/27/19 23 10/26/2022 CBC/C OMPLE TE BLD COUNT W/DIF F hemoglobin 11.6 g/dL 12.0-1 5.6 low Not Available [facility] (Lab) [address] [place], [address], 10/26/2022 19:45:43 10/27/1910/26/2022 CBC/C OMPLE TE BLD COUNT W/DIF F hematocrit 36.7 % 35.7-4 5.7 Not Available [facility] (Lab) [address] [place], [address], 10/26/2022 19:45:43 10/27/19 23 10/26/2022 CBC/C OMPLE TE BLD COUNT W/DIF F mean red cell volume 95.8 fL 82.0-9 9.0 Not Available [facility] (Lab) [address] [place], [address], 10/26/2022 19:45:43 10/27/1910/26/2022 CBC/C OMPLE TE BLD COUNT W/DIF F mean red cell hemoglobin 30.3 pg 27.0-3 3.0 Not Available [facility] (Lab) [address] [place], [address], 10/26/2022 19:45:43 10/27/1910/26/2022 CBC/C OMPLE TE BLD COUNT W/DIF F mean RBC HGB concentratio n 31.6 g/dL 31.0-3 6.0 Not Available [facility] (Lab) [address] [place], [address], 10/26/2022 19:45:43 10/27/1910/26/2022 CBC/C OMPLE TE BLD COUNT W/DIF F red cell distribution width 13.1 % 11.8-1 5.5 Not Available [facility] (Lab) [address] [place], [address], 10/26/2022 19:45:43 10/27/1910/26/2022 CBC/C OMPLE TE BLD COUNT W/DIF F platelets 223 x10'3 /uL 150-40 0 Not Available [facility] (Lab) [address] [place], [address], 10/26/2022 19:45:43 10/27/1910/26/2022 CBC/C OMPLE TE BLD COUNT W/DIF F mean platelet volume 10.4 fL 9.0-12 .4 Not Available [facility] (Lab) [address] [place], [address], 10/26/2022 19:45:43 10/27/1910/26/2022 CBC/C OMPLE TE BLD COUNT W/DIF F neutrophils 49.1 % 39.0-7 2.0 Not Available [facility] (Lab) [address] [place], [address], 10/26/2022 19:45:43 10/27/19 23 10/26/2022 CBC/C OMPLE TE BLD COUNT W/DIF F lymphocytes 38.5 % 16.0-4 7.0 Not Available [facility] (Lab) [address] [place], [address], 10/26/2022 19:45:43 10/27/1910/26/2022 CBC/C OMPLE TE BLD COUNT W/DIF F monocytes 9.7 % 5.0-12 .0 Not Available [facility] (Lab) [address] [place], [address], 10/26/2022 19:45:43 10/27/1910/26/2022 CBC/C OMPLE TE BLD COUNT W/DIF F eosinophils 1.9 % 1.0-7. 0 Not Available [facility] (Lab) [address] [place], [address], 10/26/2022 19:45:43 10/27/1910/26/2022 CBC/C OMPLE TE BLD COUNT W/DIF F basophils 0.6 % 0.0-2. 0 Not Available [facility] (Lab) [address] [place], [address], 10/26/2022 19:45:43 10/27/1910/26/2022 CBC/C OMPLE TE BLD COUNT W/DIF F immature granulocytes 0.2 % 0.00-0 .50 Not Available [facility] (Lab) [address] [place], [address], 10/26/2022 19:45:43 10/27/19 23 10/26/2022 CBC/C OMPLE TE BLD COUNT W/DIF F neutrophils, absolute count 2.58 x10'3 /uL 1.5-8. 0 Not Available [facility] (Lab) [address] [place], [address], 10/26/2022 19:45:43 10/27/19 23 10/26/2022 CBC/C OMPLE TE BLD COUNT W/DIF F lymphocytes, absolute count 2.02 x10'3 /uL 1.07-3 .43 Not Available [facility] (Lab) [address] [place], [address], 10/26/2022 19:45:43 10/27/19 23 10/26/2022 CBC/C OMPLE TE BLD COUNT W/DIF F monocytes, absolute count 0.51 x10'3 /uL 0.29-0 .99 Not Available [facility] (Lab) [address] [place], [address], 10/26/2022 19:45:43 10/27/19 23 10/26/2022 CBC/C OMPLE TE BLD COUNT W/DIF F eosinophils, absolute count 0.10 x10'3 /uL 0.02-0 .53 Not Available [facility] (Lab) [address] [place], [address], 10/26/2022 19:45:43 10/27/19 23 10/26/2022 CBC/C OMPLE TE BLD COUNT W/DIF F basophils, absolute count 0.03 x10'3 /uL 0.01-0 .08 Not Available [facility] (Lab) [address] [place], [address], 10/26/2022 19:45:43 10/27/19 23 10/26/2022 CBC/C OMPLE TE BLD COUNT W/DIF F immature granulocytes ,absolute 0.01 x10'3 /uL 0.00-0 .05 Not Available [facility] (Lab) [address] [place], [address], 10/26/2022 19:45:43 10/27/19 23 10/26/2022 CBC/C OMPLE TE BLD COUNT W/DIF F nucleated red blood cells 0.0 % -0 Not Available [facility] (Lab) [address] [place], [address], 10/26/2022 19:45:43 10/27/19 23 10/26/2022 CBC/C OMPLE TE BLD COUNT W/DIF F NRBC# 0.00 x10'3 /uL Not Available [facility] (Lab) [address] [place], [address], 10/26/2022 19:45:43 10/27/19 23 10/26/2022 COMPR EHENS MARISELA METAB OLIC PANEL sodium 139 mmol/ L 137-14 5 Not Available [facility] (Lab) [address] [place], [address], 10/26/2022 20:12:37 10/27/19 23 10/26/2022 COMPR EHENS MARISELA METAB OLIC PANEL potassium 5.0 mmol/ L 3.5-5. 1 Not Available [facility] (Lab) [address] [place], [address], 10/26/2022 20:12:37 10/27/19 23 10/26/2022 COMPR EHENS MARISELA METAB OLIC PANEL chloride 106 mmol/ L 98-107 Not Available [facility] (Lab) [address] [place], [address], 10/26/2022 20:12:37 10/27/19 23 10/26/2022 COMPR EHENS MARISELA METAB OLIC PANEL carbon dioxide 26 mmol/ L 22-30 Not Available [facility] (Lab) [address] [place], [address], 10/26/2022 20:12:37 10/27/19 23 10/26/2022 COMPR EHENS MARISELA METAB OLIC PANEL anion gap 12.0 mmol/ L 14-22 low Not Available [facility] (Lab) [address] [place], [address], 10/26/2022 20:12:37 10/27/19 23 10/26/2022 COMPR EHENS MARISELA METAB OLIC PANEL glucose 100 mg/dL 70-99 high Not Available [facility] (Lab) [address] [place], [address], 10/26/2022 20:12:37 10/27/19 23 10/26/2022 COMPR EHENS MARISELA METAB OLIC PANEL BUN 24 mg/dL 8-19 high Not Available [facility] (Lab) [address] [place], [address], 10/26/2022 20:12:37 10/27/19 23 10/26/2022 COMPR EHENS MARISELA METAB OLIC PANEL creatinine 0.84 mg/dL 0.66-1 .25 Not Available [facility] (Lab) [address] [place], [address], 10/26/2022 20:12:37 10/27/1910/26/2022 COMPR EHENS MARISELA METAB OLIC PANEL GFR >60 Refer ence Range : Meno ge GFR Healt hy Adult : >60 mL/mi n/1.7 3 m2 Chron ic Kidne y Disea se: 15-60 mL/mi n/1.7 3 m2 Kidne y Failu re: <15/m L/min /1.73 m2 www.n iddk. nih.g ov The MDRD study equat ion has not been valid ated in child benita <18 years of age; pregn ant women ; the elder ly >85 years of age; or in some racia l or ethni c subgr oups, such as Hispa nics. Outsi de the valid ated xena eters , estim ated GFR is less accur ate, requi ring clini aneesh judgm ent on a case- by-ca se basis . Clini aneesh inter preta tion for other races and ages must be made by the clini tai. The MDRD study equat ion has not been valid ated for the evalu ation of serum creat inine relat ed to nutri paolo l statu s or medic ation usage . For perso ns <18 years of age, a pedia tric GFR calcu lator is avail able on the [facility] websi te: https :[email or web address] [email or web address] [email or web address] rg/pr lakishaess ional s/kdo qi/gf r_cal culat or Not Available [facility] (Lab) [address] [place], [address], 10/26/2022 20:12:37 10/27/1910/26/2022 COMPR EHENS MARISELA METAB OLIC PANEL alkaline phosphatase 78 U/L 38-126 Not Available [facility] (Lab) [address] [place], [address], 10/26/2022 20:12:37 10/27/19 23 10/26/2022 COMPR EHENS MARISELA METAB OLIC PANEL alanine aminotransfe rase 22 U/L 0-35 Not Available [facility] (Lab) [address] [place], [address], 10/26/2022 20:12:37 10/27/19 23 10/26/2022 COMPR EHENS MARISELA METAB OLIC PANEL aspartate aminotransfe rase 31 U/L 15-37 Not Available [facility] (Lab) [address] [place], [address], 10/26/2022 20:12:37 10/27/19 23 10/26/2022 COMPR EHENS MARISELA METAB OLIC PANEL bilirubin, total 0.30 mg/dL 0.20-1 .30 Not Available [facility] (Lab) [address] [place], [address], 10/26/2022 20:12:37 10/27/19 23 10/26/2022 COMPR EHENS MARISELA METAB OLIC PANEL calcium 9.2 mg/dL 8.4-10 .2 Not Available [facility] (Lab) [address] [place], [address], 10/26/2022 20:12:37 10/27/19 23 10/26/2022 COMPR EHENS MARISELA METAB OLIC PANEL total protein 6.6 g/dL 6.3-8. 2 Not Available [facility] (Lab) [address] [place], [address], 10/26/2022 20:12:37 10/27/19 23 10/26/2022 COMPR EHENS MARISELA METAB OLIC PANEL albumin 3.9 g/dL 3.4-5. 0 Not Available [facility] (Lab) [address] [place], [address], 10/26/2022 20:12:37 10/27/19 23 10/26/2022 COMPR EHENS MARISELA METAB OLIC PANEL globulin 2.7 g/dL 2.6-4. 2 Not Available [facility] (Lab) [address] [place], [address], 10/26/2022 20:12:37 10/27/19 23 10/26/2022 COMPR EHENS MARISELA METAB OLIC PANEL A/G ratio 1.4 ratio 1.0-2. 0 Not Available [facility] (Lab) [address] [place], [address], 10/26/2022 20:12:37 10/27/1910/26/2022 LIPID PANEL cholesterol 153 mg/dL 140-19 9 NIH ELSA NSUS RECOM MENDA TION FOR SPARKLE STERO L: ADULT CHILD LOW RISK: <200 <170 BORDE RLINE : <200- 239 ----- HIGH RISK: >240 >200 Not Available [facility] (Lab) [address] [place], [address], 10/26/2022 20:12:46 10/27/19 23 10/26/2022 LIPID PANEL triglyceride s 59 mg/dL 0-150 NIH ELSA NSUS REPOR T RECOM MENDA TION FOR TRIGL YCERI NAM: ADULT CHILD LOW RISK: <150 ----- BODER LINE: 150-1 99 ----- HIGH RISK: >200 ----- Not Available [facility] (Lab) [address] [place], [address], 10/26/2022 20:12:46 10/27/19 23 10/26/2022 LIPID PANEL HDL cholesterol 77 mg/dL 40- Not Available [facility] (Lab) [address] [place] [address], [address], 10/26/2022 20:12:46 10/27/19 23 10/26/2022 LIPID PANEL LDL cholesterol, calculated 64 mg/dL 0-130 NIH ELSA NSUS REPOR T RECOM MENDA TIONS FOR LDL: ADULT CHILD LOW RISK <130 <110 (OPTI MAL LDL) <100 ----- BORDE RLINE : 130-1 59 ----- HIGH RISK: >160 >130 A TRIGL YCERI DE RESUL T >400 INVAL IDATE S THE CALCU LATIO N FOR LDL FRACT IONAT ION - THE LDL RESUL T WILL NOT BE REPOR SUZIE. Not Available [facility] (Lab) [address] [place], [address], 10/26/2022 20:12:46 10/27/1910/26/2022 VITAM IN D 25-HY DROXY [id number] 32.0 NG/mL 30-100 Vitam in D Statu s: Defic ient: <20 ng/mL Insuf ficie nt: 20-29 ng/mL Suffi cient : 30-10 0 ng/mL Not Available [facility] (Lab) [address] [place], [address], 10/26/2022 20:33:49 04/19/2004/19/2023 COMPR EHENS MARISELA METAB OLIC PANEL sodium 137 mmol/ L 137-14 5 Not Available [facility] (Lab) [address] [place], [address], 04/19/2023 18:59:01 04/19/2004/19/2023 COMPR EHENS MARISELA METAB OLIC PANEL potassium 4.5 mmol/ L 3.5-5. 1 Not Available [facility] (Lab) [address] [place], [address], 04/19/2023 18:59:01 04/19/2004/19/2023 COMPR EHENS MARISELA METAB OLIC PANEL chloride 102 mmol/ L 98-107 Not Available [facility] (Lab) [address] [place], [address], 04/19/2023 18:59:01 04/19/20 23 04/19/2023 COMPR EHENS MARISELA METAB OLIC PANEL carbon dioxide 26 mmol/ L 22-30 Not Available [facility] (Lab) [address] [place], [address], 04/19/2023 18:59:01 04/19/20 23 04/19/2023 COMPR EHENS MARISELA METAB OLIC PANEL anion gap 13.5 mmol/ L 14-22 low Not Available [facility] (Lab) [address] [place], [address], 04/19/2023 18:59:01 04/19/20 23 04/19/2023 COMPR EHENS MARISELA METAB OLIC PANEL glucose 102 mg/dL 70-99 high Not Available [facility] (Lab) [address] [place], [address], 04/19/2023 18:59:01 04/19/20 23 04/19/2023 COMPR EHENS MARISELA METAB OLIC PANEL BUN 17 mg/dL 8-19 Not Available [facility] (Lab) [address] [place], [address], 04/19/2023 18:59:01 04/19/20 23 04/19/2023 COMPR EHENS MARISELA METAB OLIC PANEL creatinine 0.79 mg/dL 0.66-1 .25 Not Available [facility] (Lab) [address] [place], [address], 04/19/2023 18:59:01 04/19/2004/19/2023 COMPR EHENS MARISELA METAB OLIC PANEL GFR >60 Refer ence Range : Meno ge GFR Healt hy Adult : >60 mL/mi n/1.7 3 m2 Chron ic Kidne y Disea se: 15-60 mL/mi n/1.7 3 m2 Kidne y Failu re: <15/m L/min /1.73 m2 [email or web address] The MDRD study equat ion has not been valid ated in child benita <18 years of age; pregn ant women ; the elder ly >85 years of age; or in some racia l or ethni c subgr oups, such as Hispa nics. Outsi de the valid ated xena eters , estim ated GFR is less accur ate, requi ring clini aneesh judgm ent on a case- by-ca se basis . Clini aneesh inter preta tion for other races and ages must be made by the clini tai. The MDRD study equat ion has not been valid ated for the evalu ation of serum creat inine relat ed to nutri paolo l statu s or medic ation usage . For perso ns <18 years of age, a pedia tric GFR calcu lator is avail able on the [facility] websi te: https ://ww w.kid lu.o rg/pr ofess ional s/kdo qi/gf r_cal culat or Not Available [facility] (Lab) [address] [place], [address], 04/19/2023 18:59:01 04/19/20 23 04/19/2023 COMPR EHENS MARISELA METAB OLIC PANEL alkaline phosphatase 96 U/L 38-126 Not Available [facility] (Lab) [address] [place], [address], 04/19/2023 18:59:01 04/19/20 23 04/19/2023 COMPR EHENS MARISELA METAB OLIC PANEL alanine aminotransfe rase 32 U/L 0-35 Not Available [facility] (Lab) [address] [place], [address], 04/19/2023 18:59:01 04/19/20 23 04/19/2023 COMPR EHENS MARISELA METAB OLIC PANEL aspartate aminotransfe rase 37 U/L 15-37 Not Available [facility] (Lab) [address] [place], [address], 04/19/2023 18:59:01 04/19/20 23 04/19/2023 COMPR EHENS MARISELA METAB OLIC PANEL bilirubin, total 0.30 mg/dL 0.20-1 .30 Not Available [facility] (Lab) [address] [place], [address], 04/19/2023 18:59:01 04/19/2004/19/2023 COMPR EHENS MARISELA METAB OLIC PANEL calcium 9.6 mg/dL 8.4-10 .2 Not Available [facility] (Lab) [address] [place], [address], 04/19/2023 18:59:01 04/19/20 23 04/19/2023 COMPR EHENS MARISELA METAB OLIC PANEL total protein 7.0 g/dL 6.3-8. 2 Not Available [facility] (Lab) [address] [place], [address], 04/19/2023 18:59:01 04/19/20 23 04/19/2023 COMPR EHENS MARISELA METAB OLIC PANEL albumin 4.1 g/dL 3.0-4. 4 Not Available [facility] (Lab) [address] [place], [address], 04/19/2023 18:59:01 04/19/20 23 04/19/2023 COMPR EHENS MARISELA METAB OLIC PANEL globulin 2.9 g/dL 2.6-4. 2 Not Available [facility] (Lab) [address] [place], [address], 04/19/2023 18:59:01 04/19/20 23 04/19/2023 COMPR EHENS MARISELA METAB OLIC PANEL A/G ratio 1.4 ratio 1.0-2. 0 Not Available [facility] (Lab) [address] [place], [address], 04/19/2023 18:59:01 04/19/20 23 04/19/2023 LIPID PANEL cholesterol 173 mg/dL 140-19 9 NIH ELSA NSUS RECOM MENDA TION FOR SPARKLE STERO L: ADULT CHILD LOW RISK: <200 <170 BORDE RLINE : <200- 239 ----- HIGH RISK: >240 >200 Not Available [facility] (Lab) [address] [place], [address], 04/19/2023 18:59:06 04/19/20 23 04/19/2023 LIPID PANEL triglyceride s 78 mg/dL 0-150 NIH ELSA NSUS REPOR T RECOM MENDA TION FOR TRIGL YCERI NAM: ADULT CHILD LOW RISK: <150 ----- BODER LINE: 150-1 99 ----- HIGH RISK: >200 ----- Not Available [facility] (Lab) [address] [place], [address], 04/19/2023 18:59:06 04/19/20 23 04/19/2023 LIPID PANEL HDL cholesterol 79 mg/dL 40- Not Available [facility] (Lab) [address] [place], [address], 04/19/2023 18:59:06 04/19/2004/19/2023 LIPID PANEL LDL cholesterol, calculated 78 mg/dL 0-130 NIH ELSA NSUS REPOR T RECOM MENDA TIONS FOR LDL: ADULT CHILD LOW RISK <130 <110 (OPTI MAL LDL) <100 ----- BORDE RLINE : 130-1 59 ----- HIGH RISK: >160 >130 A TRIGL YCERI DE RESUL T >400 INVAL IDATE S THE CALCU LATIO N FOR LDL FRACT IONAT ION - THE LDL RESUL T WILL NOT BE REPOR SUZIE. Not Available [facility] (Lab) [address] [place], [address], 04/19/2023 18:59:06 04/19/20 23 04/19/2023 CBC/C OMPLE TE BLD COUNT W/DIF F white blood cells 6.1 x10'3 /uL 4.2-10 .8 Not Available [facility] (Lab) [address] [place], [address], 04/19/2023 19:36:01 04/19/20 23 04/19/2023 CBC/C OMPLE TE BLD COUNT W/DIF F red blood cells 3.60 x10'6 /uL 3.80-5 .20 low Not Available [facility] (Lab) [address] [place], [address], 04/19/2023 19:36:01 04/19/20 23 04/19/2023 CBC/C OMPLE TE BLD COUNT W/DIF F hemoglobin 11.0 g/dL 12.0-1 5.6 low Not Available [facility] (Lab) [address] [place], [address], 04/19/2023 19:36:01 04/19/20 23 04/19/2023 CBC/C OMPLE TE BLD COUNT W/DIF F hematocrit 34.0 % 35.7-4 5.7 low Not Available [facility] (Lab) [address] [place], [address], 04/19/2023 19:36:01 04/19/20 23 04/19/2023 CBC/C OMPLE TE BLD COUNT W/DIF F mean red cell volume 94.4 fL 82.0-9 9.0 Not Available [facility] (Lab) [address] [place], [address], 04/19/2023 19:36:01 04/19/20 23 04/19/2023 CBC/C OMPLE TE BLD COUNT W/DIF F mean red cell hemoglobin 30.6 pg 27.0-3 3.0 Not Available [facility] (Lab) [address] [place], [address], 04/19/2023 19:36:01 04/19/20 23 04/19/2023 CBC/C OMPLE TE BLD COUNT W/DIF F mean RBC HGB concentratio n 32.4 g/dL 31.0-3 6.0 Not Available [facility] (Lab) [address] [place], [address], 04/19/2023 19:36:01 04/19/20 23 04/19/2023 CBC/C OMPLE TE BLD COUNT W/DIF F red cell distribution width 13.8 % 11.8-1 5.5 Not Available [facility] (Lab) [address] [place], [address], 04/19/2023 19:36:01 04/19/20 23 04/19/2023 CBC/C OMPLE TE BLD COUNT W/DIF F platelets 281 x10'3 /uL 150-40 0 Not Available [facility] (Lab) [address] [place], [address], 04/19/2023 19:36:01 04/19/20 23 04/19/2023 CBC/C OMPLE TE BLD COUNT W/DIF F mean platelet volume 10.3 fL 9.0-12 .4 Not Available [facility] (Lab) [address] [place], [address], 04/19/2023 19:36:01 04/19/20 23 04/19/2023 CBC/C OMPLE TE BLD COUNT W/DIF F neutrophils 58.0 % 39.0-7 2.0 Not Available [facility] (Lab) [address] [place], [address], 04/19/2023 19:36:01 04/19/20 23 04/19/2023 CBC/C OMPLE TE BLD COUNT W/DIF F lymphocytes 29.8 % 16.0-4 7.0 Not Available [facility] (Lab) [address] [place], [address], 04/19/2023 19:36:01 04/19/20 23 04/19/2023 CBC/C OMPLE TE BLD COUNT W/DIF F monocytes 8.9 % 5.0-12 .0 Not Available [facility] (Lab) [address] [place], [address], 04/19/2023 19:36:01 04/19/20 23 04/19/2023 CBC/C OMPLE TE BLD COUNT W/DIF F eosinophils 2.1 % 1.0-7. 0 Not Available [facility] (Lab) [address] [place], [address], 04/19/2023 19:36:01 04/19/20 23 04/19/2023 CBC/C OMPLE TE BLD COUNT W/DIF F basophils 0.7 % 0.0-2. 0 Not Available [facility] (Lab) [address] [place], [address], 04/19/2023 19:36:01 04/19/20 23 04/19/2023 CBC/C OMPLE TE BLD COUNT W/DIF F immature granulocytes 0.5 % 0.00-0 .50 Not Available [facility] (Lab) [address] [place], [address], 04/19/2023 19:36:01 04/19/20 23 04/19/2023 CBC/C OMPLE TE BLD COUNT W/DIF F neutrophils, absolute count 3.54 x10'3 /uL 1.5-8. 0 Not Available [facility] (Lab) [address] [place], [address], 04/19/2023 19:36:01 04/19/20 23 04/19/2023 CBC/C OMPLE TE BLD COUNT W/DIF F lymphocytes, absolute count 1.82 x10'3 /uL 1.07-3 .43 Not Available [facility] (Lab) [address] [place], [address], 04/19/2023 19:36:01 04/19/20 23 04/19/2023 CBC/C OMPLE TE BLD COUNT W/DIF F monocytes, absolute count 0.54 x10'3 /uL 0.29-0 .99 Not Available [facility] (Lab) [address] [place], [address], 04/19/2023 19:36:01 04/19/20 23 04/19/2023 CBC/C OMPLE TE BLD COUNT W/DIF F eosinophils, absolute count 0.13 x10'3 /uL 0.02-0 .53 Not Available [facility] (Lab) [address] [place], [address], 04/19/2023 19:36:01 04/19/20 23 04/19/2023 CBC/C OMPLE TE BLD COUNT W/DIF F basophils, absolute count 0.04 x10'3 /uL 0.01-0 .08 Not Available [facility] (Lab) [address] [place], [address], 04/19/2023 19:36:01 04/19/20 23 04/19/2023 CBC/C OMPLE TE BLD COUNT W/DIF F immature granulocytes ,absolute 0.03 x10'3 /uL 0.00-0 .05 Not Available [facility] (Lab) [address] [place], [address], 04/19/2023 19:36:01 04/19/20 23 04/19/2023 CBC/C OMPLE TE BLD COUNT W/DIF F nucleated red blood cells 0.0 % -0 Not Available [facility] (Lab) [address] [place], [address], 04/19/2023 19:36:01 04/19/20 23 04/19/2023 CBC/C OMPLE TE BLD COUNT W/DIF F NRBC# 0.00 x10'3 /uL Not Available [facility] (Lab) [address] [place], [address], 04/19/2023 19:36:01 11/18/19 22 DEXA, axial skele ton [facility] [address] [place] [address] [facility] NAHUM FOSS Access ion #: [id number] Sex: F : 1959 5 Locati on: RA2 Attend ing Physic jay jay: RIA THRASHER Orderi Physic jay jay: RIA THRASHER Exam Date: 12:33 PM Exam Name: XR DEXA AXIAL/ HIP/PE LVIS/S PINE Admitt ing Diagno sis(es ): RADIOL OGY REPORT - FINAL EXAM: XR DEXA AXIAL/ HIP/PE LVIS/S PINE HISTOR Y: postme nopaus al state COMPAR BOO: 2007 TECHNI QUE: TECHNI QUE: Dual energy x-ray of absorp tion examin ation of the bilate ral hips and lumbar spine in AP projec tion was perfor med. FINDIN GS: Lumbar Spine (L1-L4 ): The mean bone minera l densit y is 1.56 g/cm2 hydrox yapati te, correl ating with a T-scor e of 2.9 repres enting 6% increa se from the 2007 baseli ne. Bilate ral hips: The mean bone minera l densit y is 1.12 g/cm2 calciu m Page [address] [place] [address] [facility] NAHUM FOSS Access ion #: [id number] Sex: F : 1959 5 Exam Date: 12:33 PM Exam Name: XR DEXA AXIAL/ HIP/PE LVIS/S PINE Admitt ing Diagno sis(es ): hydrox yapati te, correl ating with a T-scor e of 0.9. IMPRES ZAMZAM: 1. The patien t's lumbar spine T-scor e is consis tent with a normal bone densit y. 2. The patien t's bilate ral hip T-scor e is consis tent with a normal bone densit y. Accord ing to the [employer]i zation , T-scor e values greate r than -1.0 are normal , values betwee n -1.0 and -2.5 are catego rized as osteop enia, T-scor e of -2.5 or more are catego rized as osteop orosis . Create d and electr onical ly signed by: Josemanuel taylor MD Signed Date: 12:51 PM (CT) Dictat ed by: Josemanuel taylor MD DD: 12:51 PM (CT) DT: 12:51 PM (CT) Page 2 of 2 [id number] [facility] ([facility]) [address] [place], [address], 08/04/2022 05:16:47 05/04/20 22 [facility] am No observ ation record ed. [id number] [facility] Internal [address] [place], [place], [address], 08/04/2022 05:16:47 05/04/20 22 05/04/2022 elect [facility] am No observ ation record ed. [id number] Z_[facility] Internal [address] [place], [place], [address], 08/04/2022 05:16:47 05/04/20 22 XR, thora cic spine , 3 view [facility] [address] [place], [place] [address] Patien t Name: NAHUM FOSS Access ion #: [id number] Sex: F : 1959 0 Locati on: MO2 Attend ing Physic jay jay: RIA THRASHER Orderi Physic jay jay: RIA THRASHER Exam Date: 2021 12:16 PM Exam Name: XR T SPINE 3V Admitt ing Diagno sis(es ): RADIOL OGY REPORT - FINAL EXAM: XR T SPINE 3V HISTOR Y: pain upper back pain x2 weeks COMPAR BOO: None. TECHNI QUE: Three views of the thorac ic spine were perfor med. FINDIN GS: No fractu re, listhe sis, or scolio sis of the thorac ic spine. Mild-t o-mode rate multil evel degene rative change s noted throug hout the thorac ic spine. IMPRES ZAMZAM: No acute proces s, see above. Page 1 of 2 [facility] Paticourtney t Name: NAHUM FOSS Access ion #: [id number] Sex: F : 1959 0 Exam Date: 2021 12:16 PM Exam Name: XR T SPINE 3V Admitt ing Diagno sis(es ): Create d and electr onical ly signed by: Josemanuel taylor MD Signed Date: 2021 3:18 PM (CT) Dictat ed by: Josemanuel taylor MD DD: 2021 3:18 PM (CT) DT: 2021 3:18 PM (CT) Page 2 of 2 [id number] [facility] (Imaging) [address] [place] [address], [address], 08/04/2022 05:16:47 05/04/20 22 [facility], [facility] [address] [facility] [address] [address] [phone] [facility] Name: NAHUM FOSS Access ion #: [id number] Sex: F : 1959 0 Locati on: MO2 Attend ing Physic jay jay: RIA THRASHER Orderi Physic jay jay: RIA THRASHER Exam Date: 2021 12:16 PM Exam Name: XR CHEST 2V Admitt ing Diagno sis(es ): RADIOL OGY REPORT - FINAL EXAM: XR CHEST 2V HISTOR Y: pain COMPAR BOO: None. TECHNI QUE: Two views of the chest were perfor med. FINDIN GS: No pneumo thorax , consol idativ e infilt rates, pleura l effusi ons, or pulmon thalia edema. The heart is not enlarg ed. Eviden ce of bilate ral mid and upper lobe bullou s emphys ematou s residu als. IMPRES ZAMZAM: See above. Page 1 of 2 [facility] Paticourtney t Name: NAHUM FOSS Access ion #: [id number] Sex: F : 1959 0 Exam Date: 2021 12:16 PM Exam Name: XR CHEST 2V Admitt ing Diagno sis(es ): Create d and electr onical ly signed by: Josemanuel taylor MD Signed Date: 2021 3:24 PM (CT) Dictat ed by: Josemanuel taylor MD DD: 2021 3:24 PM (CT) DT: 2021 3:24 PM (CT) Page 2 of 2 [id number] [facility] (Imaging) [address] [place], [address], 08/04/2022 05:16:47 05/04/20 22 XR, cervi aneesh spine , [address] 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 TECHNI QUE: AP, latera l, and AP open-m outh odonto id images are evalua suzie. MONA GS: Larissa ellis g of the normal cervic al lordos is. Zygoap ophyse al joint hypert rophic change s noted throug hout the cervic al spine. Degene rative change s noted at the C4-5 C5-6 and C6-7 disc spaces . No eviden ce of a fractu re. No prever tebral mass. IMPRES ZAMZAM: Page 1 of 2 [facility] Patien t Name: NAHUM FOSS Access ion #: [id number] Sex: F : 1959 0 Exam Date: 2021 12:16 PM Exam Name: XR C SPINE 2-3V Admitt ing Diagno sis(es ): No acute proces s, see above. Create d and electr onical ly signed by: Josemanuel taylor MD Signed Date: 2021 7:57 PM (CT) Dictat ed by: Josemanuel taylor MD DD: 2021 7:57 PM (CT) DT: 2021 7:57 PM (CT) Page 2 of 2 [id number] [facility] (Imaging) [address] [place], [address], 08/04/2022 05:16:47 05/11/20 22 05/11/2022 exerc isilana james s test No observ ation record ed. [id number] [facility] ([facility]) [address] [place], [address], 08/04/2022 05:16:47 05/11/20 22 05/11/2022 , echoc ardio gram No observ ation record ed. [id number] [facility] ([facility]) [address] [place], [address], 08/04/2022 05:16:47 08/27/19 23 08/25/2022 scree elma breas t félix, bilat [facility] [address] [place] [address] [phone] Patien t Name: NAHUM FOSS Access ion #: [id number] Sex: F : 1959 8 Locati on: RAD Attend ing Physic jay jya: RIA THRASHER Orderi ng Physic jay jay: RIA THRASHER Exam Date: 023 1:30 PM Exam Name: MG LUNDBERG BREAST FÉLIX BILAT Admitt ing Diagno sis(es ): MAMMOG SERENITY REPORT - FINAL EXAM: MG LUNDBERG BREAST FÉLIX BILAT HISTOR Y: SCREEN ING MAMMOG SHILOH COMPAR BOO: 2021 TECHNI QUE: Bilate ral CC and MLO views of the breast s were perfor med. Digita l Mammog serenity images were obtain ed. CAD (compu ter assist ed detect ion) was utiliz ed. 3D Digita l breast tomosy nthesi s was perfor med and used in the interp retati on of images . FINDIN GS: The breast s are almost entire ly fatty. No masses , asymme tries, suspic ious calcif icatio ns, or coleen ectura l Page 1 of 2 [facility] Norah brennan Name: NAHUM FOSS Access ion #: [id number] Sex: F : 1959 8 Exam Date: 023 1:30 PM Exam Name: MG LUNDBERG BREAST FÉLIX BILAT Admitt ing Diagno sis(es ): distor tion are seen. IMPRES ZAMZAM: BIRADS 1: Assess ment comple te. Negati ve. Recomm end annual screen ing mammog serenity. Accord ing to the [employer], yearly mammog karin are recomm ended starti ng at age 40 and contin uing as long as the woman is in good health . Clinic al Breast Exam should be part of the period health exam-a bout every 3 years for women in their 20s and 30s and every year for women 40 and over. Breast self-e xam is an option for women in their 20s. Any breast change noted on the breast self-e xam she would be report ed prompt ly to the patien t's health care provid er. A negati ve mammog serenity report should not discou rage follow -up or biopsy of a clinic ally signif icant findin g and/or abnorm ality. Dense breast tissue may obscur e small neopla sms. This norah brennan has been entere d into a mammog serenity remind er system with a target date for her next mammog shiloh. Create d and electr onical ly signed by: Josemanuel taylor MD Signed Date: 4:27 PM (CT) Dictat ed by: Josemanuel taylor MD DD: 4:27 PM (CT) DT: 4:27 PM (CT) Page 2 of 2 [email or web address] [facility] (Imaging) [address] [place], [address], 08/30/2022 10:09:00 Result Notes None recorded. Problems Name Problem SNOMED Code Status Onset Date Resolution Date Notes Provider Name and Address Organization Details Recorded Time Chondromal acia of right patella 2721756477951 9108 Active 2019 Not Available [facility] 3 06:34:48 Liver enzymes outside reference range 944258855 Active Not Available [facility] 3 06:34:48 Asthma 766615385 Active Not Available [facility] 3 06:34:48 Abdominal pain 92561596 Active Not Available [facility] 3 06:34:48 Menopausal symptom 20257910 Active Not Available [facility] 3 06:34:48 Overexerti on and strenuous movements Active Not Available [facility] 3 06:34:48 Degenerati ve joint disease of hand 91025069 Active Not Available [facility] 3 06:34:48 Gallstone 069831600 Active Not Available [facility] 3 06:34:48 Pure hyperchole sterolemia 095053107 Active Not Available [facility] 3 06:34:48 Malaise and fatigue 380355809 Active Not Available [facility] 3 06:34:48 Thoracic back pain 366001819 Active 2021 Not Available [facility] 3 06:34:48 Chest pain 37810242 Active Not Available [facility] 3 06:34:48 Recurrent dislocatio n of shoulder region 70897945 Active Not Available [facility] 3 06:34:48 Current tear of medial cartilage AND/OR meniscus of knee Active Not Available [facility] 3 06:34:48 Knee pain Active Not Available [facility] 3 06:34:48 Enthesopat hy of wrist AND/OR carpus 69265406 Active Not Available [facility] 3 06:34:48 Vitamin D deficiency 64818828 Active Not Available [facility] 3 06:34:48 Contact dermatitis 41251346 Active Not Available [facility] 3 06:34:48 Arthropath y of joint of hand 225094624 Active Not Available [facility] 3 06:34:49 Anxiety 11084567 Active 2019 Not Available [facility] 3 06:34:49 Cough 97832730 Active Not Available [facility] 3 06:34:49 Disorder of bursa of shoulder region 50429054 Active Not Available [facility] 3 06:34:49 Female stress incontinen ce 45706482 Active Not Available [facility] 3 06:34:49 Derangemen t of knee 62791000 Active Not Available [facility] 3 06:34:49 Hypercalce lucy 68948735 Active Not Available [facility] 3 06:34:49 Neck pain 39820132 Active 2021 Not Available [facility] 3 06:34:49 Problem Notes None recorded. 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 Not Available [facility] 08/04/2022 05:00:07 09/03/19 18 Lsh uterus 250 g or less completed Not Available [facility] 08/04/2022 05:00:07 08/27/19 18 Hysterectomy completed Not Available [facility] 08/04/2022 05:00:07 01/31/20 15 Cholecystectomy completed Not Available [facility] 08/04/2022 05:00:07 12/19/19 15 Knee arthroscopy/surger y completed Not Available [facility] 08/04/2022 05:00:07 11/08/19 14 wrist repair completed Not Available [facility] 08/04/2022 05:00:07 11/08/19 14 Orthopedic Surgery completed Not Available [facility] 08/04/2022 05:00:07 06/06/19 13 Orthopedic Surgery completed Not Available [facility] 08/04/2022 05:00:07 07/08/19 12 Date of Last Colonoscopy completed Not Available [facility] 08/04/2022 05:00:02 plantar fasciectomy completed Not Available Count includes the [facility] 08/04/2022 05:00:07 Cataract Surgery completed Not Available [facility] 08/04/2022 05:00:07 Imaging Results Imaging Date Name Status LastModified by Organization Details LastModified Time 05/11/2022 exercise stress test completed [id number] [id number] [facility] ([facility]) [address] [place], [address], 08/04/2022 05:16:47 05/11/2022 US, echocardiogram completed [id number] [id number] [facility] ([facility]) [address] [place], [address], 08/04/2022 05:16:47 05/04/2022 electrocardiogram completed MIGRATION. [id number] [facility] [address] [place], [place], [address], 08/04/2022 05:16:47 05/04/2022 electrocardiogram completed MIGRATION. [id number] [facility] [address] [place], [place], [address], 08/04/2022 05:16:47 05/04/2022 XR, thoracic spine, 3 view completed [id number] [facility] (Imaging) [address] [place], [address], 08/04/2022 05:16:47 05/04/2022 XR, chest, 2 view completed MIGRATION. [id number] [facility] (Imaging) [address] [place], [address], 08/04/2022 05:16:47 05/04/2022 XR, cervical spine, 2 or 3 view completed [id number] [facility] (Imaging) [address] [place], [address], 08/04/2022 05:16:47 11/17/2021 DEXA, axial skeleton completed [id number] [id number] [facility] (Imaging) [address] [place], [address], 08/04/2022 05:16:47 08/25/2022 screening breast félix, bilat completed [email or web address] [facility] (Imaging) [address] [place], [address], 08/30/2022 10:09:00 Procedure Notes None recorded. Medical Equipment None Reported. Allergies Allergen ID Allergen Name Allergen Category Reaction Reaction Severity Criticality Documentation Date Start Date Code Code System Note Provider Name and Address Organization Details Recorded Time 9424 celecoxib medicatio n itching Not available Not available 08/04/2022 03644 7 RxNorm Not Available [facility] 05:16:25 Medications Name Sig Start Date Stop Date Status Note LastModified by Organization Details LastModified Time celecoxib 200 mg capsule TAKE 1 CAPSULE DAILY 11/18 completed Not Available Not Available Not Available Augmentin 875 mg-125 mg tablet Take 1 tablet twice a day by oral route for 10 days. 04/21 completed Not Available Not Available Not Available etodolac 300 mg capsule TAKE 1 CAPSULE TWICE A DAY (REPLACES CELEBREX) active Not Available Not Available No t Available atorvastati n 10 mg tablet active Not Available Not Available Not Available azithromyci n 250 mg tablet uud 09/15 completed Not Available Not Available Not Available tizanidine 4 mg tablet Take 1 tablet twice a day by oral route as needed. active Not Available Not Available No t Available hydrocodone 5 mg-acetamin ophen 325 mg tablet 03/20 completed Not Available Not Available Not Available prednisone 20 mg tablet 2 tablets every day for one week 11/18 completed Not Available Not Available Not Available ciprofloxac in 500 mg tablet Take 1 tablet every 12 hours by oral route for 7 days. 12/29 completed Not Available Not Available Not Available oxycodone-a cetaminophe n 5 mg-325 mg tablet 04/29 completed Not Available Not Available Not Available Kenalog 10 mg/mL suspension for injection In office injection administe red by the provider 07/19 completed [facility] [place]: [phone] Not Available Not Available Not Available benzonatate 100 mg capsule Take 1 capsule 3 times a day by oral route. 09/15 completed Not Available Not Available Not Available hydrocodone 7.5 mg-acetamin ophen 325 mg tablet active Not Available Not Available No t Available polymyxin B sulfate 10,000 unit-trimet hoprim 1 mg/mL eye drops 11/18 completed Not Available Not Available Not Available montelukast 10 mg tablet qd 12/24 completed Not Available Not Available Not Available levetiracet am 750 mg tablet TAKE ONE T PO TWICE D active Not Available Not Available No t Available ergocalcife rol (vitamin D2) 1,250 mcg (50,000 unit) capsule TAKE 1 CAPSULE BY MOUTH EVERY WEEK active Not Available Not Available No t Available methylpredn isolone 4 mg tablets in a dose pack uud 09/15 completed Not Available Not Available Not Available albuterol sulfate HFA 90 mcg/actuati on aerosol inhaler active Not Available Not Available Not Available fluoxetine 20 mg capsule active Not Available Not Available Not Available Mucinex 600 mg tablet, extended release TAKE 1 TABLET BY MOUTH EVERY 12 HOURS 09/15 completed Not Available Not Available Not Available nitrofurant oin monohydrate /macrocryst als 100 mg capsule 09/15 completed Not Available Not Available Not Available Flovent HFA 220 mcg/actuati on aerosol inhaler USE 2 INHALATIO NS ORALLY TWICE DAILY active Not Available Not Available No t Available lidocaine (PF) 10 mg/mL (1 %) injection solution In office injection administe red by the provider 07/19 completed [facility] [place]: [phone] Not Available Not Available Not Available levocetiriz ine 5 mg tablet TAKE 1 TABLET DAILY active Not Available Not Available No t Available Prolensa 0.07 % eye drops 11/18 completed Not Available Not Available Not Available Fluvirin 45 mcg (15 mcg x 3)/0.5 mL intramuscul ar suspension INJECT 0.5 ML INTRAMUSC ULARLY DIRECTED. active Not Available Not Available No t Available Fluvirin 9891-7261 45 mcg (15 mcg x 3)/0.5 mL intramuscul ar suspension active Not Available Not Available N ot Available Fluvirin [id number] 45 mcg (15 mcg x 3)/0.5 mL intramuscul ar suspension ADM 0.5ML IM UTD 08/24 completed Not Available Not Available Not Available Shingrix (PF) 50 mcg/0.5 mL intramuscul ar suspension, kit PHARMACY ADMINISTE RED 11/18 completed Not Available Not Available Not Available Fluzone Quad (PF) 60 mcg(15 mcgx4)/0.5 mL intramuscul ar syringe TO BE ADMINISTE RED BY PHARMACVirtuix T FOR IMMUNIZAT ION 11/28 completed Not Available Not Available Not Available Lotemax SM 0.38 % eye gel drops 11/18 completed Not Available Not Available Not Available Afluria Qd 2018- (36 mos up)(PF)60 mcg (15 mcg x4)/0.5 mL IM syringe TO BE ADMINISTE RED BY PHARMACIS T FOR IMMUNIZAT ION 03/20 completed Not Available Not Available Not Available Fluzone Quad (PF) 60 mcg (15 mcg x 4)/0.5 mL IM syringe PHARMACY ADMINISTE RED 11/18 completed Not Available Not Available Not Available Vitals Date Recorded Body mass index (BMI) Body height Heart rate Body temperature Body weight Systolic blood pressure Diastolic blood pressure Provider Name and Address Organization Details Last Updated DateTime 2 32.3 kg/m2 167.64 cm 58 /min 95.9 [degF] 32545.4 7 g 122 mm[Hg] 80 mm[Hg] Not Available [facility] 3 05:04:27 Date Recorded Body mass index (BMI) Body height Heart rate Body temperature Body weight Systolic blood pressure Diastolic blood pressure Provider Name and Address Organization Details Last Updated DateTime 2 32.3 kg/m2 167.64 cm 65 /min 97.7 [degF] 20209.4 7 g 122 mm[Hg] 88 mm[Hg] Not Available [facility] 3 05:04:27 Date Recorded Body mass index (BMI) Body height Heart rate Body temperature Body weight Systolic blood pressure Diastolic blood pressure Provider Name and Address Organization Details Last Updated DateTime 3 33.9 kg/m2 167.64 cm 63 /min 97.7 [degF] 21566.4 g 130 mm[Hg] 78 mm[Hg] Not Available [facility] 3 05:04:27 Date Recorded Body height Body mass index (BMI) Body weight Body temperature Heart rate Oxygen saturation Oxygen saturation in Arterial blood by Pulse oximetry Systolic blood pressure Diastolic blood pressure Provider Name and Address Organization Details Last Updated DateTime 3 167.64 cm 33.6 kg/m2 14139.2 1 g 98.2 [degF] 62 /min 98 % 98 % 116 mm[Hg] 80 mm[Hg] Thu Landeros RN [facility] 3 11:48:33 Date Recorded Body height Body mass index (BMI) Body weight Body temperature Heart rate Systolic blood pressure Diastolic blood pressure Provider Name and Address Organization Details Last Updated DateTime 3 167.64 cm 35.2 kg/m2 00845.1 4 g 97.6 [degF] 71 /min 122 mm[Hg] 84 mm[Hg] ROOPA Elizondo [facility] [employer] 3 11:50:25 Social History Question Answer Notes LastModified by Organization Details LastModified Time Tobacco Smoking Status Never Smoker Not Available [facility] 08/04/2022 04:58:04 Do You Have An Advance Directive? Yes Living Will MIGRATION.0301 [id number] Information not available 08/04/2022 What Is Your Level Of Alcohol Consumption? None MIGRATION.0301 [id number] Information not available 08/04/2022 What Is Your Level Of Caffeine Consumption? Heavy MIGRATION.0301 [id number] Information not available 08/04/2022 How Much Tobacco Do You Chew? None MIGRATION.0301 [id number] Information not available 08/04/2022 In The 14 Days Before Symptom Onset, Have You Had Close Contact With A Laboratory-confi rmed COVID-19 While That Case Was Ill? No MIGRATION.0301 [id number] Information not available 08/04/2022 In The 14 Days Before Symptom Onset, Have You Had Close Contact With A Person Who Is Under Investigation For COVID-19 While That Person Was Ill? No MIGRATION.0301 [id number] Information not available 08/04/2022 What Type Of Diet Are You Following? REGULAR MIGRATION.0301 [id number] Information not available 08/04/2022 Which Illicit Or Recreational Drugs Have You Used? None MIGRATION.0301 [id number] Information not available 08/04/2022 Do You Or Have You Ever Used E-cigarettes Or Vape? Never Used Electronic Cigarettes MIGRATION.0301 013045 Information not available 08/04/2022 What Is The Highest Grade Or Level Of School You Have Completed Or The Highest Degree You Have Received? 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 No MIGRATION.0301 [id number] Information not available 08/04/2022 What Is The Fluoride Status Of Your Home? Unknown MIGRATION.0301 [id number] Information not available 08/04/2022 Are There Any Guns Present In Your Home? No MIGRATION.0301 [id number] Information not available 08/04/2022 Do You Use Insect Repellent Routinely? No MIGRATION.0301 [id number] Information not available 08/04/2022 Where Do You Live? SingleLevelHouse MIGRATION.0301 [id number] Information not available 08/04/2022 Do You Have A Medical Power Of Firing Pin Gauger? Yes MIGRATION.0301 [id number] Information not available 08/04/2022 What Was The Date Of Your Most Recent Tobacco Screening? 04/19/2023 [email or web address] Information not available 04/19/2023 Do You Have Any Pets? No MIGRATION.0301 [id number] Information not available 08/04/2022 What Is Your Relationship Status? MIGRATION.0301 [id number] Information not available 08/04/2022 Do You Use Your Seat Belt Or Car Seat Routinely? Yes MIGRATION.0301 670391 Information not available 08/04/2022 Do You Have Smoke And Carbon Monoxide Detectors In Your Home? Yes MIGRATION.0301 [id number] Information not available 08/04/2022 Are You Passively Exposed To Smoke? No MIGRATION.0301 745663 Information not available 08/04/2022 Do You Or Have You Ever Used Smokeless Tobacco? Never Used Smokeless Tobacco MIGRATION.0301 706753 Information not available 08/04/2022 Are There Any Smokers In Your House? No MIGRATION.0301 519371 Information not available 08/04/2022 How Much Tobacco Do You Smoke? No MIGRATION.0301 755994 Information not available 08/04/2022 What Types Of Sporting Activities Do You Participate In? None MIGRATION.0301 670649 Information not available 08/04/2022 Do You Feel Stressed (tense, Restless, Nervous, Or Anxious, Or Unable To Sleep At Night)? [id number] MIGRATION.0301 [id number] Information not available 08/04/2022 Do You Use Any Illicit Or Recreational Drugs? No MIGRATION.0301 556901 Information not available 08/04/2022 Do You Use Sunscreen Routinely? Yes MIGRATION.0301 [id number] Information not available 08/04/2022 Has Tobacco Cessation Counseling Been Provided? No Not Needed-n ever Smoked MIGRATION.0301 [id number] Information not available 08/04/2022 Have You Recently Traveled Abroad? No MIGRATION.0301 624026 Information not available 08/04/2022 Do You Have Any Dietary Restrictions? No MIGRATION.0301 074997 Information not available 08/04/2022 Do You Or Have You Ever Used Any Other Forms Of Tobacco Or Nicotine? No MIGRATION.0301 299374 Information not available 08/04/2022 Sex: Female Functional Status Question Answer Note LastModified by Organizat ion Details LastModified Time What is your exercise level? Occasional [id number] Information not available 08/04/2022 Mental Status None recorded. Family History Relationship Description Onset Age of this Age Resolved Age Notes LastModified by Organization Details LastModified Time Mother Malignant tumor of lung 68 MIGRATION.698 [id number] Not available 08/04/2022 05:00:12 Father Parkinson's disease 52 MIGRATION.936 [id number] Not available 08/04/2022 05:00:12 Unspecified Relation Family history of malignant neoplasm MIGRATION.843 [id number] Not available 08/04/2022 05:00:12 Medical History Condition Response BLINDNESS N NERVE DISEASE N RHEUMATIC FEVER N BLADDER PROBLEMS N KIDNEY STONES N MRSA N OTHER # 1 N POLIO N LUNG DISEASE/DISORDER N RADIATION / CHEMOTHERAPY N COPD N Other # 2 N BLOOD DISEASES N EAR OR HEARING PROBLEMS N MUMPS N BOWEL PROBLEMS N DEPRESSION (INCLUDING POST ) Y STROKE/TIA N ULCERS N BENIGN PROSTATIC HYPERPLASIA N MEASLES N MYOCARDIAL INFARCTION N OBESITY N GERD/NAUSEA N ANEURYSM N URINARY/BLADDER/KIDNEY PROBLEMS Y CORONARY ARTERY DISEASE (CAD) N ADDICTION CONCERNS N ENDOMETRIOSIS N Impotence N USE OF BLOOD THINNERS N SKIN PROBLEMS Y GASTROINTESTINAL DISORDER N PERIPHERAL VASCULAR DISEASE N MUSCLE,JOINT OR BONE PROBLEMS N GASTROINTESTINAL BLEEDING N BLOOD CLOTS N ASTHMA Y CATARACTS N ERECTILE DYSFUNCTION N VARICOSITIES N GI PROBLEMS N Low Testosterone N INFERTILITY N AIDS/HIV N CHEMOTHERAPY / RADIATION N LIVER DISEASE N MALE HYPOGONADISM N HYPERTENSION N Deficiency Y TOURETTE'S N ANXIETY DISORDER Y BLOOD TRANSFUSION N ANEMIA/BLOOD DISORDER N CHRONIC EAR INFECTIONS N BRONCHITIS N TUBERCULOSIS N GLAUCOMA N FOOT PROBLEM N DIVERTICULITIS N SLEEP APNEA N CHICKENPOX N INFECTIOUS DISEASE N HEART ARRHYTHMIA N PROSTATE N INSOMNIA N HIGH CHOLESTEROL / HYPERLIPIDEMIA Y HYPERTHYROIDISM N EYE PROBLEMS N EDEMA N CHRONIC PAIN SYNDROME N HYPOTHYROIDISM N CAROTID BLOCKAGE N CONSTIPATION N BACK / NECK PROBLEMS N HAVE YOU BEEN HOSPITALIZED OR SEEN IN [place] IN THE PAST YEAR ? N ATHEROSCLEROSIS N BREAST PROBLEMS N DIALYSIS N ECZEMA N OSTEOPOROSIS N ARTHRITIS N APPENDICITIS N DIABETES, TYPE N BAD TEETH N ENT N HEARTBURN / REFLUX N AUTISM SPECTRUM DISORDER (ASD) N HEPATITIS / LIVER DISEASE N GOUT N SLEEP DISORDER N ALZHEIMER'S DISEASE N Brain Problems N HERPES N DEMENTIA N HEADACHES/MIGRAINES N SEIZURES/EPILEPSY N VASCULAR DISEASE N PACEMAKER N Blood Disorder N DIZZINESS N HEART DISEASE/HEART PROBLEMS N KIDNEY DISEASE N MULTIPLE SCLEROSIS N CARDIAC ARRHYTHMIA N CANCER: SPECIFY N ATRIAL FIBRILLATION N Gall Stones Y PULMONARY EMBOLISM N AUTOIMMUNE DISEASE N Gynecological History Statement/Question Response Date of Last Pap 05/12/2017 Date of Last Mammogram 04/02/2016 Current Control Method Hysterectom y Date of Last Colonoscopy 07/08/2011 Most Recent Bone Density Obstetrics History GPAL:G 2 P 2 0 0 2 Type Value Full Term 2 Living 2 Total 2 Immunizations Vaccine Type Date Status Note Provider Nam e and Address Organization Details Recorded Time COVID-19, mRNA, LNP-S, PF, 30 mcg/0.3 mL dose 1 completed Not Available [facility] the [facility] 04/21/2023 06:34:49 COVID-19, mRNA, LNP-S, PF, 10 mcg/0.2 mL dose, kevyn-sucrose 2 completed Not Available [facility] 04/21/2023 06:34:49 COVID-19, mRNA, LNP-S, PF, 10 mcg/0.2 mL dose, kevyn-sucrose 2 completed Not Available Count includes the [facility] 04/21/2023 06:34:49 Influenza, split virus, quadrivalent, preservative 1 completed Not Available [facility] 04/21/2023 06:34:49 COVID-19, mRNA, LNP-S, PF, 100 mcg/0.5mL dose or 50 mcg/0.25mL dose 1 completed Not Available Count includes the [facility] 04/21/2023 06:34:49 COVID-19, mRNA, LNP-S, PF, 100 mcg/0.5mL dose or 50 mcg/0.25mL dose 1 completed Not Available [facility] 04/21/2023 06:34:49 zoster, unspecified formulation 0 completed Not Available [facility] 04/21/2023 06:34:49 Influenza, split virus, trivalent, preservative 0 completed Not Available [facility] 04/21/2023 06:34:49 Influenza, split virus, quadrivalent, preservative 9 completed Not Available [facility] 04/21/2023 06:34:49 Influenza, split virus, quadrivalent, preservative 8 completed Not Available [facility] 04/21/2023 06:34:49 Influenza, split virus, trivalent, preservative 3 completed Not Available [facility] 04/21/2023 06:34:49 Pneumococcal conjugate PCV 13 6 completed Not Available Count includes the [facility] 04/21/2023 06:34:49 Influenza, split virus, trivalent, preservative 3 completed Not Available Count includes the [facility] 04/21/2023 06:34:49 Past Encounters Encounter ID Performer Location Encounter Start Date Encounter Closed Date Diagnosis/Indication Diagnosis SNOMED-CT Code Diagnosis ICD10 Code Diagnosis Note [id number] [facility] [place] [address] [place] [address] y , [place] [address] 11/18/2020 00:00:00 11/29/2020 16:12:43 [id number] [facility] [place] [facility] [place] [address] 05/21/2021 00:00:00 05/21/2021 14:27:54 [id number] [facility] [place] [address] [place] [address] [place] [address] 11/12/2021 00:00:00 12/07/2021 11:21:46 [id number] [facility] [place] [address] [place] [address] [address] [address] 05/04/2022 00:00:00 05/26/2022 12:38:31 [id number] [facility] [place] [address] [place] [address] [place] [address] 06/22/2022 00:00:00 06/22/2022 11:14:12 [id number] Cayetano Thrasher MD [facility] Internal [facility] [place] [address] [place] [address] [place] [address] 10/26/2022 11:34:42 10/26/2022 12:47:56 Pure hypercholesterolemia 466264212 E78.00 Vitamin D deficiency 347 93787 E55.9 Asthma 863138132 J45.90 9 Anxiety 84739582 F41.9 [id number] Cayetano Thrasher MD [facility] [place] [address] [place] [address] [place] [address] 04/19/2023 11:21:35 04/19/2023 12:25:13 Pure hypercholesterolemia 841133413 E78.00 Long-term drug therapy 599103262 Z79.899 Postmenopausal state 764 06047 Z78.0 Screening mammography 24 491206 Z12.31 Health Concerns Section Related Observation LastModified by Organization Detai ls LastModified Time None Recorded Concern Status LastModified by Organization Details LastModified Time None Recorded Advance Directives Directive Y: living will Payers Encounter Date Sequence Insurance Name Policy Number Policy Dumont Covered Member ID Dumont Member ID Guarantor Name 10/26/2022 1 [employer] [id number] Nahum Foss [id number] Nahum Foss 04/19/2023 1 [employer] [id number] Nahum Foss [id number] Nahum Foss Notes Date Note Type Note Provider Name and Address Organization Details Recorded Time 10/26/2022 text/html hyperlipidemia taking her medication needs to be checked. Low vitamin-D level in the past given her fact that she takes seizure medications we need to check that. Anxiety stable no SI or HI asthma she has had a little flare with the high pollen counts and we fat Cayetano Thrasher MD [address], [place], [address], [employer] 10/26/2022 13:55:12 04/19/2023 text/html hyperlipidemia taking her medication needs to be checked. Low vitamin-D level in the past given her fact that she takes seizure medications we need to check that. Anxiety stable no SI or HI asthma stable Cayetano Thrasher MD [address], [place], [address], [employer] 04/26/2023 21:02:17 OBGyn Episode No OBEpisode recorded.
[2024-07-26 15:21] VITALS: BP 143/70; PULSE 70; RESP 16; TEMP 36.9; O2SAT 98
--- NOTE | 2024-07-26 16:32 | ED.UPPEXIN ---
HPI - Extremity Injury (Upper) General Chief Complaint: Extremity Injury, Upper Stated Complaint: L hand injury Time Seen by Provider: 07/26/24 16:30 Source: patient Limitations: no limitations History of Present Illness HPI narrative: 64 years old white female came with pain, slightly swelling and redness of the left hand 3-4 days ago, patient was caught between electric wheelchair and a christianson. Causing a laceration dorsally. Unknown last tetanus. Patient denies any fever or chills or nausea or vomiting. Related Data Allergies Allergy/AdvReac Type Severity Reaction Status Date / Time No Known Allergies Allergy Unverified 08/24/17 11:02 Review of Systems Review of Systems: All systems reviewed & are unremarkable except as noted in HPI and below Exam Narrative: General appearance: Well-developed, well-nourished Skin: Normal color Head: Normocephalic, nontraumatic Vascular: Normal peripheral pulses, normal capillary refill. Musculoskeletal: Left hand exam showed a 1 cm laceration dorsally surrounded by erythema and warmth and diffuse tenderness about 4 x 5 cm otherwise within normal limit, no discharge Neurologic: Alert and oriented ?3, SAMPLE DISTRIBUTOR is normal as tested, no gross motor deficit Course Vital Signs Vital signs: Vital Signs Temperature 36.9 C 07/26/24 15:21 Pulse Rate 70 07/26/24 15:21 Respiratory Rate 16 07/26/24 15:21 Blood Pressure 143/70 H 07/26/24 15:21 Pulse Oximetry 98 07/26/24 15:21 Oxygen Delivery Room Air 07/26/24 15:21 Temperature 36.9 C 07/26/24 15:21 Pulse Rate 70 07/26/24 15:21 Respiratory Rate 16 07/26/24 15:21 Blood Pressure 143/70 H 07/26/24 15:21 Pulse Oximetry 98 07/26/24 15:21 Oxygen Delivery Room Air 07/26/24 15:21 MDM - Extremity Injury (Upper) MDM Narrative Medical decision making narrative: Left hand contusion with laceration, infected causing cellulitis X-ray of the hand showed no broken bone Discharged on Keflex, patient received a tetanus shot prior to discharge Differential Diagnosis Differential diagnosis: Likely other (Fracture, contusion, cellulitis) Imaging Data Radiologist's impression: Impressions Hand X-Ray 07/26/24 16:43 IMPRESSION: 1. Polyarticular osteoarthritis. Critical Care Time Critical Care Time Critical Care Time: No Discharge Plan Discharge Clinical Impression: Cellulitis Patient Disposition: Home, Self-Care Condition: Stable Instructions: Antibiotic Form, Cellulitis (ED) Additional Instructions: Return if symptoms are worsening , call your family physician for appointment, take Tylenol as as needed for aches and pain, continue home medications., keep hand elevated, ibuprofen 600 every 6 hours as needed Patient Language: Chilean Prescriptions: New cephalexin 500 mg capsule 500 mg PO Q6H 7 Days Qty: 28 0RF Follow-up/Referrals: Price,MD Cayetano [Primary Care Provider] -
[2024-07-26] MEDS: TETANUS,DIPHTHERIA,AC PERTUSSIS ADULT (0.5 ML) BOOSTRIX IM (17:15)
== END 2024-07-26 17:24 | disposition home or self-care (01) ==
PROVIDERS: Emergency Provider Emergency Medicine; PCP Internal Medicine
DX: L03.114 Cellulitis of left upper limb (principal); Z23 Encounter for immunization; M19.032 Primary osteoarthritis, left wrist; M19.142 Post-traumatic osteoarthritis, left hand
CPT/HCPCS: 73130; 90471; 90715; 99283